=== PATIENT | female | born 1995 ===

== ENCOUNTER 2022-02-19 08:45 | Outpatient (REF) | payer OTHER, SELFPAY ==
--- NOTE | ~2022-02-19 | XR_ITS ---
EXAMINATION: XR ABDOMEN COMPLETE CLINICAL INDICATION: Abdominal distention COMPARISON: None TECHNIQUE: 2 views of the abdomen. FINDINGS: There is scattered stool seen in colon without distention. The small bowel loops are normal caliber. There is no organomegaly. No radiopaque renal calculi seen. No gross bony abnormality. XR/XR abdomen min 2V IMPRESSION: Mild constipation. No acute process seen.
[2022-02-19 09:12] LABS: MANUAL DIFF FLAG NO
[2022-02-19 09:31] LABS: Basophils Absolute Auto 0.1 X10*3/uL (0.0-0.2); Basophils Percent Auto 0.9 % (0-2); Eosinophils Absolute Auto 0.1 X10*3/uL (0.0-0.4); Eosinophils Percent Auto 1.4 % (0-4); Hematocrit 32.8 % (37.0-47.0); Hemoglobin 9.8 g/dl (12.0-16.0); Imm Gran Abs Auto 0.01 X10*3/uL (0.00-0.03); Imm Gran Pct Auto 0.2 % (0.0-0.4); Lymphocytes Absolute Auto 2.3 X10*3/uL (1.2-4.9); Lymphocytes Percent Auto 39.4 % (20-40); Mean Corpuscular HGB Conc 29.9 g/dl (31.0-35.0); Mean Corpuscular Hemoglobin 20.5 pg (27.0-33.0); Mean Corpuscular Volume 68.5 fL (80.0-98.0); Mean Platelet Volume 10.8 fL (9.4-12.3); Monocytes Absolute Auto 0.3 X10*3/uL (0.1-1.2); Monocytes Percent Auto 5.9 % (2-11); Neutrophils Percent Auto 52.2 % (45-73); Platelet Count 281 X10*3/uL (160-400); Red Blood Count 4.79 X10*6/uL (4.20-5.50); Red Cell Distribution Width 15.4 % (11.0-16.0); White Blood Count 5.8 X10*3/uL (4.8-10.8)
[2022-02-19 10:09] LABS: Appearance Urine CLEAR; Color Urine YELLOW; Glucose Urine UA NEG (NEG); Leukocyte Esterase Urine NEG (NEG); Nitrite Urine NEG (NEG); PH 5.5 (5.0-8.0); Specific Gravity - Urine >= 1.030 (1.005-1.025); Urine Blood NEG (NEG); Urine Ketones NEG (NEG); Urine Protein NEG (NEG-TRACE)
[2022-02-19 10:12] LABS: Alanine Aminotransferase 17 U/L (0-31); Albumin Level 4.3 g/dL (3.5-5.0); Alkaline Phosphatase 46 U/L (39-117); Anion Gap 11 (12-20); Aspartate Amino Transferase 21 U/L (5-31); Bilirubin Total 0.5 mg/dL (0.0-1.0); Blood Urea Nitrogen 10 mg/dL (9-16); Calcium 9.3 mg/dL (8.4-10.2); Carbon Dioxide 25 mmol/L (22-29); Chloride 107 mmol/L (96-108); Cholesterol 162 mg/dL; Estimated Glomerular Filt Rate > 60; Glucose Random 112 mg/dL (60-115); Potassium 4.4 mmol/L (3.3-5.1); Sodium 139 mmol/L (135-145); Total Protein 7.1 g/dL (6.5-8.0)
[2022-02-19 10:36] LABS: TSH reflex Free T4 1.08 uIU/mL (0.32-4.0); Vitamin D 25-OH Total 26.6 ng/mL (>30)
== END 2022-02-19 08:46 | disposition home or self-care (01) ==
LOC: HO.XRAY 08:45
PROVIDERS: PCP Internal Medicine; Visit Provider Internal Medicine
DX: Z00.00 Encounter for general adult medical examination without abnormal findings (principal); E55.9 Vitamin D deficiency, unspecified; R14.0 Abdominal distension (gaseous)
CPT/HCPCS: 36415; 74019; 80053; 81003; 82306; 82465; 84443; 85025

== ENCOUNTER 2022-02-26 10:52 | Outpatient (REF) | payer OTHER, SELFPAY ==
[2022-02-26 13:34] LABS: Folate 13.3 ng/mL (> or = 4.0); Vitamin B12 1149 pg/mL (200-900)
[2022-03-03 08:11] LABS: Transglutaminase IgA <1.0 U/mL
== END 2022-02-26 10:53 | disposition home or self-care (01) ==
LOC: HO.LAB 10:52
PROVIDERS: PCP Internal Medicine; Visit Provider Internal Medicine
DX: E53.8 Deficiency of other specified B group vitamins (principal); R14.0 Abdominal distension (gaseous)
CPT/HCPCS: 36415; 82607; 82746; 86364

== ENCOUNTER 2022-05-21 09:06 | Outpatient (REF) | payer OTHER, SELFPAY ==
--- NOTE | ~2022-05-21 | FL_ITS ---
EXAMINATION: XR GI SERIES CLINICAL INFORMATION: Abdominal distention. Gastroesophageal reflux disease. COMPARISON: None TECHNIQUE: Upper GI was performed using thin and thick barium and effervescent granules. FINDINGS: There is gastroesophageal reflux. The esophagus is otherwise normal. Esophageal motility is normal. No hernia is seen. The stomach is normal appearing. No mass, ulcer, stricture or fold thickening is seen. There is question of fold thickening and mass effect on the proximal duodenum. Follow-up abdominal CT should be considered. FLUOROSCOPY TIME: 0.7 minutes DOSE AREA PRODUCT: 6.2 uGy-m2 (microgray-meter squared) IMAGES: 22 FL/FL upper GI series IMPRESSION: Gastroesophageal reflux. Question fold thickening and mass effect on the proximal duodenum. Follow-up abdominal CT should be considered.
== END 2022-05-21 09:07 | disposition home or self-care (01) ==
LOC: HO.XRAY 09:06
PROVIDERS: PCP Internal Medicine; Visit Provider Internal Medicine
DX: R14.0 Abdominal distension (gaseous) (principal); R06.6 Hiccough
CPT/HCPCS: 74240

== ENCOUNTER 2022-07-16 10:23 | Outpatient (REF) | payer OTHER, SELFPAY ==
[2022-07-16 10:40] LABS: MANUAL DIFF FLAG NO
[2022-07-16 11:58] LABS: Basophils Absolute Auto 0.1 X10*3/uL (0.0-0.2); Basophils Percent Auto 0.8 % (0-2); Eosinophils Absolute Auto 0.1 X10*3/uL (0.0-0.4); Eosinophils Percent Auto 1.2 % (0-4); Hematocrit 38.9 % (37.0-47.0); Hemoglobin 11.4 g/dl (12.0-16.0); Imm Gran Abs Auto 0.02 X10*3/uL (0.00-0.03); Imm Gran Pct Auto 0.3 % (0.0-0.4); Lymphocytes Absolute Auto 2.1 X10*3/uL (1.2-4.9); Lymphocytes Percent Auto 28.4 % (20-40); Mean Corpuscular HGB Conc 29.3 g/dl (31.0-35.0); Mean Corpuscular Hemoglobin 21.2 pg (27.0-33.0); Mean Corpuscular Volume 72.2 fL (80.0-98.0); Mean Platelet Volume 11.9 fL (9.4-12.3); Monocytes Absolute Auto 0.5 X10*3/uL (0.1-1.2); Monocytes Percent Auto 6.4 % (2-11); Neutrophils Absolute Auto 4.6 x10*3/uL (2.0-8.3); Neutrophils Percent Auto 62.9 % (45-73); Platelet Count 254 X10*3/uL (160-400); Red Blood Count 5.39 X10*6/uL (4.20-5.50); Red Cell Distribution Width 15.8 % (11.0-16.0); White Blood Count 7.2 X10*3/uL (4.8-10.8)
[2022-07-16 12:49] LABS: Alanine Aminotransferase 21 U/L (0-31); Alkaline Phosphatase 57 U/L (39-117); Anion Gap 13 (12-20); Aspartate Amino Transferase 23 U/L (5-31); Bilirubin Total 0.4 mg/dL (0.0-1.0); Blood Urea Nitrogen 9 mg/dL (9-16); Calcium 9.7 mg/dL (8.4-10.2); Carbon Dioxide 29 mmol/L (22-29); Chloride 105 mmol/L (96-108); Estimated Glomerular Filt Rate > 60; Glucose Random 99 mg/dL (60-115); Iron 71 mcg/dL (30-160); Percent Iron Saturation 15 % (15-50); Potassium 4.4 mmol/L (3.3-5.1); Sodium 143 mmol/L (135-145); Total Iron Binding Capacity 473 mcg/dL (228-428); Total Protein 7.4 g/dL (6.5-8.0); Unsaturated Iron Binding 402 ug/dL
[2022-07-16 13:03] LABS: Albumin Level 4.3 g/dL (3.5-5.0)
== END 2022-07-16 10:24 | disposition home or self-care (01) ==
LOC: HO.LAB 10:23
PROVIDERS: PCP Internal Medicine; Visit Provider Internal Medicine
DX: D50.9 Iron deficiency anemia, unspecified (principal); R14.0 Abdominal distension (gaseous); R93.3 Abnormal findings on diagnostic imaging of other parts of digestive tract
CPT/HCPCS: 36415; 80053; 83540; 85025

== ENCOUNTER 2022-09-10 07:58 | Outpatient (REF) | payer OTHER, SELFPAY ==
--- NOTE | ~2022-09-10 | CT_ITS ---
EXAMINATION: CT ABDOMEN WITH CONTRAST CLINICAL INFORMATION: Abnormal findings on fluoroscopic studies on the proximal duodenum. COMPARISON: Upper GI fluoroscopy 05/21/2022. TECHNIQUE: Contiguous axial thin section helical images of the abdomen were performed following the administration of oral contrast and 85 mL of Omnipaque 350 intravenous contrast. The data set was reformatted in the coronal and sagittal planes and reviewed on an independent workstation. This CT examination was performed using dose optimization techniques as appropriate, variously including the following: *Automated exposure control *Adjustment of mA and/or kV according to patient size (this includes techniques or standardized protocols for targeted exams where dose is matched to indication/reason for exam; i.e. extremities or head) *Use of iterative reconstruction technique DLP: 241 mGy-cm FINDINGS: LUNG BASES: Streaky opacities in the left lung base and right middle lobe, favored to represent subsegmental atelectasis or scarring. A few sub-3 mm pleural-based nodularities, for instance in the posterior right lower lobe (6:6) and posterior left lower lobe (6:51) are of uncertain significance. No focal consolidation or pleural effusion. LIVER, GALLBLADDER, AND BILIARY TREE: The liver is normal in size, shape and attenuation. There is a 2.2 cm right hepatic lobe lesion with suggestion of peripheral nodular enhancement (3:27). There is an additional 1.5 cm low density lesion in the posteromedial right hepatic lobe (3:26) with irregular contour and also some questionable peripheral enhancement. Normal gallbladder. No biliary ductal dilatation. PANCREAS: Unremarkable SPLEEN: Normal size, no focal lesion. ADRENAL GLANDS AND KIDNEYS: No adrenal nodule or mass. Symmetric nephrograms with no evidence of hydronephrosis. No focal renal lesion. No perinephric fat stranding. BOWEL LOOPS: The included portions of the bowel are within normal limits. No evidence of bowel obstruction. No pericolonic inflammatory changes. LYMPH NODES: No abdominal lymphadenopathy. VASCULAR: Abdominal aorta is of normal diameter. Main portal vein is patent. BONES: No acute or aggressive appearing osseous abnormalities. CT/CT abdomen w IV con IMPRESSION: 1. Two hepatic lesions are indeterminate, possibly representing hemangiomas, however incompletely characterized in this examination. Recommend further characterization with an MR of the abdomen with and without intravenous contrast. 2. No discrete abnormality within the duodenal sweep, however the duodenum is partially under distended limiting its assessment. If deemed appropriate correlation with an upper endoscopy could be obtained. 3. Sub-3 mm pleural-based nodularities are of uncertain significance. In patients younger than age 35, standard Fleischner Society recommendations for incidental pulmonary nodule follow-up do not apply as nodules in this age group are most likely to be infectious/inflammatory.
[2022-09-10] MEDS: Barium Sulfate Oral (Berry) 450 ML ORAL.SUSP 900 ML PO (09:43)
[2022-09-10] MEDS: iohexoL 350 MG/ML 100 ML INFUS..BTL IV (09:44)
== END 2022-09-10 07:59 | disposition home or self-care (01) ==
LOC: HO.CT 07:58
PROVIDERS: PCP Internal Medicine; Visit Provider Internal Medicine
DX: R93.3 Abnormal findings on diagnostic imaging of other parts of digestive tract (principal)
CPT/HCPCS: 74160; Q9967

== ENCOUNTER 2022-09-28 08:23 | Outpatient (REF) | payer OTHER, SELFPAY ==
[2022-10-01 14:30] LABS: H Pylori Breath Test Negative (Negative)
== END 2022-09-28 08:24 | disposition home or self-care (01) ==
LOC: HO.LNP 08:23
PROVIDERS: Visit Provider Physician Assistant
DX: A04.8 Other specified bacterial intestinal infections (principal); R93.3 Abnormal findings on diagnostic imaging of other parts of digestive tract; R14.0 Abdominal distension (gaseous)
CPT/HCPCS: 83013

== ENCOUNTER → 2022-09-28 09:20 | Outpatient (BNVA) | payer OTHER, SELFPAY | PROVIDERS: PCP Internal Medicine; Visit Provider Physician Assistant | DX: R14.0 Abdominal distension (gaseous) (principal); R93.3 Abnormal findings on diagnostic imaging of other parts of digestive tract; A04.8 Other specified bacterial intestinal infections | CPT/HCPCS: 99202 ==

== ENCOUNTER 2023-10-24 13:12 | Outpatient (AMB) | payer OTHER, SELFPAY ==
--- NOTE | 2023-10-24 13:18 | A.OFFVIS_ITS ---
Intake Vital Signs 10/24/23 13:29 Height 5 ft 8 in Weight 213 lb 13.574 oz BMI 32.5 BP 106/63 Blood Pressure Location Lt brachial Position Sitting Pulse 81 Intake Visit Reasons: r/s from 11/09/22 Intake Note: Patient is seen in office for follow up visit, following abdominal bloating. 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 Accompanied by: Self / Same As Patient Allergies No Known Drug Allergies Allergy (Unknown, Verified 10/24/23 13:26) Unknown HPI HPI Comments History of Present Illness Details A 27 y/o female with gas and bloating she is here for [id number] says she does not feel any better despite dietary modifications -- Hpylori is negative- she does not hav e acid reflux-simethicone and pantoprazole- she d/cd- gasx some relief- not much reviewed dietary intake-Low FOD map not helpful drinks with straw- most times- Appetite is better than good No nausea, vomiting, hematemesis, hematochezia fever chills PFSH Medical History Obesity (BMI 30-39.9) Vitamin D deficiency Surgical History S/P LASIK surgery Family History Mother Arthritis Diabetes High cholesterol High blood pressure Heart problem Father High blood pressure Diabetes High cholesterol Arthritis Other Mental health problem Social History Housing: House Alcohol intake: never Patient Tobacco Use Status: Never used Tobacco Second Hand Smoke Exposure: Yes service: No Current occupational status: employed Cognitive needs: No Hearing needs: No Vision needs: No Review of Systems Const All systems reviewed & are unremarkable except as noted in HPI and below Card Denies chest pain and Denies dyspnea Resp Denies dyspnea GI Denies abdominal pain, Reports bloating, Denies hematochezia, Denies change in bowel habits, Reports dyspepsia, Denies heartburn, Denies nausea and Denies vomiting Psych Reports anxiety Physical Exam Vital Signs: Last Vital Signs Pulse 81 10/24/23 13:29 BP 106/63 10/24/23 13:29 BMI result Body Mass Index 32.5 Const General: cooperative, healthy appearing, comfortable and no acute distress Orientation/consciousness: patient oriented x3 Limitations: no limitations Resp Effort & Inspection: normal respiratory effort and able to speak in complete sentences Auscultation: clear to auscultation bilaterally, no rales, no rhonchi and no wheezes Cardio Rate: regular rate Rhythm: regular rhythm Heart sounds: S1 normal heart sound present and S2 normal heart sound present GI Palpation (GI): Soft to palpation and nontender Auscultation: normal bowel sounds Skin General skin exam: no rashes or lesions noted Neuro General: patient oriented x3 Extrem General: Yes full ROM Psych Appearance: grossly normal and well kempt Mental Status: mental status grossly normal Speech and movement: Normal speech and movement present and Clear speech present Affect: Anxious affect present Attitude: cooperative Thought content: Normal thought content present Insight: Good insight present (Psych) Judgement: Good judgement present (Psych) Results Reviewed Results Reviewed: CT/CT abdomen w IV con IMPRESSION: 1.? Two hepatic lesions are indeterminate, possibly representing hemangiomas, however incompletely characterized in this examination. Recommend further characterization with an MR of the abdomen with and without intravenous contrast. 2.? No discrete abnormality within the duodenal sweep, however the duodenum is partially under distended limiting its assessment. If deemed appropriate correlation with an upper endoscopy could be obtained. 3.? Sub-3 mm pleural-based nodularities are of uncertain significance. In patients younger than age 35, standard Fleischner Society recommendations for incidental pulmonary nodule follow-up do not apply as nodules in this age group are most likely to be infectious/inflammatory. Assessment & Plan Assessment & Plan (1) Abdominal bloating: Comment: Very pleasant 28-year-old female abdominal bloating and despite dietary modification Continue Simethicone avoid culprits Code(s): R14.0 - Abdominal distension (gaseous) Plan will retry [employer] Medications: New simethicone (Gas Relief (simethicone)) 125 mg PO TID-QID PRN 90 tabs 2RF abdominal distention Patient Instructions: EGD- to be scheduled-reviewed procedure need for escort gas x fod map Encouraged to call questions or concerns Coding Level of Care Code Est Pt Level 3 (54180) Diagnoses Abdominal bloating R14.0 Time Spent (min) 25
[2023-10-24 13:29] VITALS: BP 106/63; PULSE 81; BMI 32.5
== END 2023-10-24 14:31 | disposition home or self-care (01) ==
PROVIDERS: PCP Internal Medicine; Visit Provider Physician Assistant
DX: R14.0 Abdominal distension (gaseous) (principal)
CPT/HCPCS: 99213

== ENCOUNTER → 2023-10-24 13:12 | Outpatient (BNVA) | payer OTHER, SELFPAY | PROVIDERS: PCP Internal Medicine; Visit Provider Physician Assistant | DX: R14.0 Abdominal distension (gaseous) (principal) | CPT/HCPCS: 99212 ==

== ENCOUNTER 2023-11-09 12:30 | Outpatient (AMB) | payer OTHER, SELFPAY ==
[2023-11-09 12:34] VITALS: BP 118/78; PULSE 66; O2SAT 99; BMI 32.5
--- NOTE | 2023-11-09 12:34 | A.OFFPC_ITS ---
Vital Signs 11/09/23 12:34 Height 5 ft 8 in Weight 214 lb BMI 32.5 BP 118/78 Blood Pressure Location Lt brachial Position Sitting Pulse 66 Pulse Source Pulse Oximeter Pulse Oximetry (%) 99 Oxygen Delivery Method Room Air Intake Visit Reasons: PE/ Discuss weight loss [employer] Lieutenant Required: No Accompanied by: Self / Same As Patient Allergies No Known Drug Allergies Allergy (Unknown, Verified 11/09/23 13:37) Unknown Medication List - Last Reconciled 11/09/23 by Jesús Simon MD magnesium 250 mg PO DAILY PRN multivitamin with minerals (Hair,Skin and Nails tablet) 1 tab PO DAILY simethicone (Gas Relief (simethicone)) 125 mg PO TID-QID PRN Tobacco use date assessed: 11/09/23 Dental Screening Dental Screen Date: 11/09/23 Did you have a dental visit in the last 12 months?: Yes Did you have a dental problem in the last 6 months where you did not have access to dental care?: No Was dental information given to patient?: Patient has dentist HPI PE/ Discuss weight loss HPI Details Patient comes in today for her annual physical examination States that she feels okay She denies any headaches or dizziness Denies any chest pains, no SOB No nausea/vomiting, no abdominal pain but states that she still has to take her Simethicone every now and then due to increased abdominal gas occasionally No change in bowel habits noted She denies any acute urinary symptoms States that she has not seen gynecology in about 7 to 8 years now Is supposedly scheduled for EGD sometime next month but have advised her that this may have been rescheduled to December 2023 based on what I am seeing in her chart and have recommended that she check with GI regarding this to confirm She had her abdominal CT done last year to confirm the abnormal findings on her previous upper GI series and would like to go over the details of her results Adds that she has been struggling with her weight and has not had much success even though she tries to work out at least a couple of times a week and watches her diet regularly - is concerned that this may affect her health long-term as she's had problems with being a borderline diabetic in the past [facility] Medical History Vitamin D deficiency Obesity (BMI 30-39.9) Surgical History S/P LASIK surgery Family History Mother Arthritis Diabetes High cholesterol High blood pressure Heart problem Father High blood pressure Diabetes High cholesterol Arthritis Other Mental health problem Social History Housing: House Alcohol intake: never Patient Tobacco Use Status: Never used Tobacco Second Hand Smoke Exposure: Yes service: No Current occupational status: employed Cognitive needs: No Hearing needs: No Vision needs: No Questionnaire PHQ-9 Over the last 2 weeks, how often have you been bothered by any of the following problems? 1. Little interest or pleasure in doing things: not at all 2. Feeling down, depressed, or hopeless: not at all 3. Trouble falling or staying asleep, or sleeping too much: not at all 4. Feeling tired or having little energy: not at all 5. Poor appetite or overeating: not at all 6. Feeling bad about yourself - or that you are a failure or have let yourself or your family down: not at all 7. Trouble concentrating on things, such as reading the newspaper or watching television: not at all 8. Moving or speaking so slowly that other people could have noticed. Or the opposite - being so fidgety or restless that you have been moving around a lot more than usual: not at all 9. Thoughts that you would be better off or of hurting yourself in some way: not at all Total score: 0 Depression Screening Interpretation: Negative Depression Screening Done: Yes 45363 - PHQ-9 Billing: Yes Source: Developed by Drs. Bo Esparza, Samira Kincaid, Curtis Mendosa and colleagues, with an educational joaquin from [employer]. Thrive Questionnaire Date Thrive assessed: 11/09/23 I am a: Patient What is your living situation today?: I have a steady place to live Within the past 12 months, did the food you bought not last and you didn't have the money to get more?: Never true Within the past 12 months, did you worry whether your food would run out before you got money to buy more?: Never true Do you have trouble paying for medicines?: No Do you have trouble getting transportation to medical appointments?: No Do you have trouble paying your heating and electricity bill?: No Do you have trouble taking care of your child, family member or friend?: No Do you have trouble with day-to-day activities such as bathing, preparing meals, shopping, managing finances, etc.?: No Are you currently unemployed and looking for a job?: No Are you interested in more education?: No Please select the resources that you would like help with: None Currently or been in a relationship where the following occur: no concerns reported THRIVE Score: 0 AUDIT C Alcohol Use Questionnaire (AUDIT-C) 1. How often do you have a drink containing alcohol?: Never 3. How often do you have six or more drinks on one occasion?: Never Total Score: 0 Score Reviewed/Action Taken: Yes SRUTHI-7 AMB Questionnaire SRUTHI-7 Date SRUTHI - 7 assessed: 11/09/23 Feeling nervous, anxious, or on edge: 0 = Not at all Not being able to stop or control worryin = Not at all Worrying too much about different things: 0 = Not at all Trouble relaxin = Not at all Being so restless that it is hard to sit still: 0 = Not at all Becoming easily annoyed or irritable: 0 = Not at all Feeling afraid as if something awful might happen: 0 = Not at all Total SRUTHI-7 score (0-4 normal; 5-9 mild; 10-14 moderate; 15-21 severe): 0 Source: Developed by Drs. Bo Esparza, Samira Kincaid, Curtis Mendosa and colleagues, with an educational joaquin from [employer]. Review of Systems Const Denies chills, Denies fatigue, Denies fever(s), Denies headache(s) and Denies malaise Eyes Denies blurry vision, Denies change in vision, Denies irritation and Denies itchy eyes ENT Denies dysphagia, Denies dizziness, Denies otalgia, Denies headache(s), Denies neck pain, Denies odynophagia, Denies sinus pain and Denies sore throat Card Denies chest pain, Denies rapid heart rate, Denies irregular heart rhythm, Denies palpitations and Denies dyspnea Resp Denies chest congestion, Denies cough, Denies dyspnea and Denies wheezing GI Denies abdominal pain, Reports belching (stomach feels gassy often), Denies bloating, Denies constipation, Denies dysphagia, Denies heartburn, Denies diarrhea, Denies nausea, Denies odynophagia and Denies vomiting Denies hematuria, Denies urinary frequency, Denies dysuria, Denies urinary incontinence and Denies urinary urgency Musc Denies back pain, Denies arthralgias, Denies joint swelling, Denies muscle weakness and Denies neck pain Skin/Breast Denies breast pain, Denies breast mass, Denies change in pigmentation, Denies lesions, Denies rash and Denies unusual bruising Neuro Denies dizziness, Denies headache(s) and Denies paresthesias Psych Denies anxiety and Denies depression Endo Denies fatigue and Denies palpitations Praveen/Lymph Denies easy bruising Aller/Immun Denies itchy eyes and Denies wheezing Physical exam (Primary Care) Vital Signs: Last Vital Signs Pulse 66 11/09/23 12:34 BP 118/78 11/09/23 12:34 Pulse Ox 99 11/09/23 12:34 Oxygen Delivery Method Room Air 11/09/23 12:34 BMI result Body Mass Index 32.5 Tobacco/Smoking Status: Tobacco use Status Tobacco use date assessed 11/09/23 11/09/23 12:40 Patient Tobacco Use Status Never used Tobacco 11/09/23 12:40 PHQ-9: PHQ-9 Score PHQ-9: Total score 0 11/09/23 12:40 Depression Screening Interpretation: Negative Thrive Assessment: Date of Thrive Assessment Date Thrive assessed 11/09/23 11/09/23 12:40 Currently or been in a relationship where the following occur: no concerns rep orted Const General: no acute distress, alert and awake Orientation/consciousness: patient oriented x3 HENMT Head: Yes normocephalic and Yes atraumatic Ears: external ears normal, TM's normal bilaterally and EAC's normal General nose exam: No nasal discharge present Face and sinus: Yes normal facial exam and Yes sinuses nontender Teeth and gingiva: dentition normal Throat: Yes posterior oropharynx normal and Yes tonsils normal (no TP congestion) Eyes Eyelids: Yes eyelids normal Conjunctivae: conjunctivae normal Pupils: Equal, round and reactive pupils present EOM: EOMs intact bilaterally Neck Neck: Yes no lymphadenopathy and Yes supple Thyroid: Thyroid normal Resp Auscultation: clear to auscultation bilaterally, no rales and no wheezes Cardio Rate: regular rate Rhythm: regular rhythm Heart sounds: no murmurs GI Palpation (GI): Soft to palpation, nontender and No hepatosplenomegaly present Auscultation: normal bowel sounds General: Yes no CVA tenderness Back/Spine/Pelvis Back: no CVA tenderness Thoracic/Lumbar Spine: thoracic and lumbar spine normal to inspection Skin Lesions: no lesions Rashes: no rashes Neuro General: patient oriented x3, moves all extremities, no focal motor deficits and CN's II-XI intact bilaterally Cranial nerves: Yes Equal, round and reactive pupils present Cognition (Neuro): normal cognition Gait exam (Neuro): Normal gait present Extrem General: Yes no clubbing, cyanosis or edema Assessment and Plan Assessment & Plan (1) Annual physical exam: Code(s): Z00.00 - Encounter for general adult medical examination without abnormal findings Plan: Check labs She has not seen gynecology in about 7 to 8 years now and is overdue for her annual pap smear and gynecology exam (2) Lesion of right lobe of liver: Code(s): K76.9 - Liver disease, unspecified Plan: Results of her abdominal CT done last August 2022 reviewed and discussed with patient Will send her for MRI of the abdomen to further evaluation the 2 right liver lesions seen on CT - suspect hemangiomas (3) Abdominal bloating: Comment: Very pleasant 28-year-old female abdominal bloating and despite dietary modification Continue Simethicone avoid culprits Code(s): R14.0 - Abdominal distension (gaseous) Plan: Reinforced dietary restrictions Abdominal x-rays done in 2021 came out mostly normal except for findings suggestive of mild constipation Upper GI series a few months later revealed (+) gastroesophageal reflux, with a questionable fold thickening and mass effect on the proximal duodenum Abdominal CT done in August 2022 revealed (+) two hepatic lesions that are indeterminate, possibly representing hemangiomas, however incompletely characterized in this examination and recommend further characterization with an MR of the abdomen with and without intravenous contrast. There were no discrete abnormality within the duodenal sweep, however the duodenum is partially under distended limiting its assessment and an upper endoscopy should be considered She was supposedly scheduled for EGD next month but it looks like this was rescheduled and patient is advised to check with [facility] regarding this She w as tried on Omeprazole 40 mg QD but did not feel that this helped so she stopped taking it a while ago (4) Anemia: Code(s): D64.9 - Anemia, unspecified Qualifiers: Anemia type: iron deficiency Iron deficiency anemia type: inadequate dietary iron intake Qualified Code(s): D50.8 - Other iron deficiency anemias Plan: Her last H/H was at 11.4/38.9 in June 2022 She was started previously on oral iron supplements (Ferrous Sulfate 325 mg QD) but she has not taken this in months now Will recheck her CBC for follow up (5) High serum vitamin B12: Code(s): R79.89 - Other specified abnormal findings of blood chemistry Plan: Patient had a very high B12 level of >1000 pg/ml when it was last checked in 2021 States that she is not really taking any B12 supplements Will recheck this and if this is still elevated, may need further work up (6) Vitamin D deficiency: Code(s): E55.9 - Vitamin D deficiency, unspecified Plan: Will recheck her Vitamin D level for follow up (7) Obesity (BMI 30-39.9): Code(s): E66.9 - Obesity, unspecified Plan: Reinforced diet/exercise as tolerated/lose weight - advised that I would not recommend any weight loss Rx until all of her GI issues are resolved and addressed Plan Follow up in 6 months Orders: Orders Complete Blood Count Auto Diff Today D64.9 - Anemia, unspecified, Z00.00 - Encounter for general adult medical examination without abnormal findings Comprehensive [place]. Panel Fast Today E78.00 - Pure hypercholesterolemia, unspecified, Z00.00 - Encounter for general adult medical examination without abnormal findings TSH reflex Free T4 Today E78.00 - Pure hypercholesterolemia, unspecified, Z00.00 - Encounter for general adult medical examination without abnormal findings Vitamin D 25-OH Total Today E55.9 - Vitamin D deficiency, unspecified, Z00.00 - Encounter for general adult medical examination without abnormal findings Vitamin B12 and Folate Today E53.8 - Deficiency of other specified B group vitamins, Z00.00 - Encounter for general adult medical examination without abnormal findings Hemoglobin A1c Today E11.9 - Type 2 diabetes mellitus without complications, Z0 0.00 - Encounter for general adult medical examination without abnormal findings MR abdomen wo/w con Today K76.9 - Liver disease, unspecified Lipid Panel Today E78.00 - Pure hypercholesterolemia, unspecified, Z00.00 - Encounter for general adult medical examination without abnormal findings UA CC w/rflx Micro + Cult Today R30.0 - Dysuria, Z00.00 - Encounter for general adult medical examination without abnormal findings Referrals [facility] [employer] Referral Z12.4 - Encounter for screening for malignant neoplasm of cervix Coding Level of Care Code Est Pt Prev Care [id number]([id number]) Diagnoses Annual physical exam Z00.00 Lesion of right lobe of liver K76.9 Abdominal bloating R14.0 Iron deficiency anemia secondary to inadequate dietary iron intake D50.8 Anemia type: iron deficiency Iron deficiency anemia type: inadequate dietary iron intake High serum vitamin B12 R79.89 Vitamin D deficiency E55.9 Obesity (BMI 30-39.9) E66.9
== END 2023-11-09 13:38 | disposition home or self-care (01) ==
PROVIDERS: PCP Internal Medicine; Visit Provider Internal Medicine
DX: Z00.00 Encounter for general adult medical examination without abnormal findings (principal); K76.9 Liver disease, unspecified; R14.0 Abdominal distension (gaseous); D50.8 Other iron deficiency anemias; R79.89 Other specified abnormal findings of blood chemistry; E55.9 Vitamin D deficiency, unspecified
CPT/HCPCS: 99395

== ENCOUNTER 2023-11-09 13:41 | Outpatient (REF) | payer OTHER, SELFPAY ==
[2023-11-09 13:53] LABS: MANUAL DIFF FLAG NO
[2023-11-09 14:05] LABS: Basophils Absolute Auto 0.1 X10*3/uL (0.0-0.2); Basophils Percent Auto 0.8 % (0-2); Eosinophils Absolute Auto 0.1 X10*3/uL (0.0-0.4); Eosinophils Percent Auto 1.2 % (0-4); Hematocrit 37.4 % (37.0-47.0); Hemoglobin 11.2 g/dl (12.0-16.0); Imm Gran Abs Auto 0.03 X10*3/uL (0.00-0.03); Imm Gran Pct Auto 0.4 % (0.0-0.4); Lymphocytes Absolute Auto 2.4 X10*3/uL (1.2-4.9); Lymphocytes Percent Auto 30.8 % (20-40); Mean Corpuscular HGB Conc 29.9 g/dl (31.0-35.0); Mean Corpuscular Hemoglobin 21.4 pg (27.0-33.0); Mean Corpuscular Volume 71.5 fL (80.0-98.0); Monocytes Absolute Auto 0.5 X10*3/uL (0.1-1.2); Monocytes Percent Auto 5.9 % (2-11); Neutrophils Absolute Auto 4.7 x10*3/uL (2.0-8.3); Neutrophils Percent Auto 60.9 % (45-73); Platelet Count 271 X10*3/uL (160-400); Red Blood Count 5.23 X10*6/uL (4.20-5.50); Red Cell Distribution Width 15.2 % (11.0-16.0); White Blood Count 7.8 X10*3/uL (4.8-10.8)
[2023-11-09 14:37] LABS: Alanine Aminotransferase 15 U/L (0-31); Albumin Level 4.2 g/dL (3.5-5.0); Alkaline Phosphatase 44 U/L (39-117); Anion Gap 8 (12-20); Aspartate Amino Transferase 18 U/L (5-31); Bilirubin Total 0.2 mg/dL (0.0-1.0); Blood Urea Nitrogen 12 mg/dL (9-16); Calcium 9.1 mg/dL (8.4-10.2); Carbon Dioxide 28 mmol/L (22-29); Chloride 107 mmol/L (96-108); Cholesterol 180 mg/dL (<200); Estimated Glomerular Filt Rate > 60; Glucose Fasting 102 mg/dL (60-99); HDL Cholesterol 45 mg/dL (>40); LDL Cholesterol Calculated 115 mg/dL (<100); Potassium 4.2 mmol/L (3.3-5.1); Sodium 139 mmol/L (135-145); Total Protein 7.5 g/dL (6.5-8.0); Triglycerides 101 mg/dL (<150)
[2023-11-09 14:53] LABS: TSH reflex Free T4 0.57 uIU/mL (0.32-4.0); Vitamin D 25-OH Total 22.2 ng/mL (>30)
[2023-11-09 15:16] LABS: Folate 6.2 ng/mL (> or = 4.0); Vitamin B12 706 pg/mL (200-900)
[2023-11-09 15:21] LABS: Estimated Average Glucose 111 mg/dL; Hemoglobin A1c % 5.5 % (<6.0)
== END 2023-11-09 13:42 | disposition home or self-care (01) ==
LOC: HO.LAB 13:41
PROVIDERS: PCP Internal Medicine; Visit Provider Internal Medicine
DX: Z00.00 Encounter for general adult medical examination without abnormal findings (principal); E78.00 Pure hypercholesterolemia, unspecified; D64.9 Anemia, unspecified; E55.9 Vitamin D deficiency, unspecified; E53.8 Deficiency of other specified B group vitamins; E11.9 Type 2 diabetes mellitus without complications
CPT/HCPCS: 36415; 80053; 80061; 82306; 82607; 82746; 83036; 84443; 85025

== ENCOUNTER 2023-11-17 12:50 | Day surgery (SDC) | payer OTHER, SELFPAY ==
--- NOTE | 2023-11-16 09:31 | HO.ANESPROP2 ---
Documented by User: Rizwana Centeno NP 11/16/23 09:33 HPI - Anesthesia Eval Consult details Narrative: 28yo F for Upper Endoscopy PMFSH Active Problems Active Problems: All Active Problems (Updated 11/09/23 @ 14:30 by Jesús Simon MD) High serum vitamin B12 (Acute) Lesion of right lobe of liver (Acute) Helicobacter pylori (H. pylori) (Acute) Abnormal upper gastrointestinal barium series (Acute) Vitamin D deficiency (Acute) Anemia (Acute) Obesity (BMI 30-39.9) (Acute) Seborrhea capitis in adult (Acute) Annual physical exam (Acute) Singultus (Acute) Abdominal bloating (Acute) Past Medical History Medical History Vitamin D deficiency Obesity (BMI 30-39.9) Family History Family History Mother Arthritis Diabetes High cholesterol High blood pressure Heart problem Father High blood pressure Diabetes High cholesterol Arthritis Other Mental health problem Surgical History Surgical History S/P LASIK surgery Social History Social History Housing: House Alcohol intake: never Patient Tobacco Use Status: Never used Tobacco Second Hand Smoke Exposure: Yes Use of substances other than those prescribed or required for medical reasons: No Advance Directives: No Advance Directives Information Provided: Yes service: No Current occupational status: employed Cognitive needs: No Hearing needs: No Vision needs: No Meds Allergies Allergy/AdvReac Type Severity Reaction Status Date / Time No Known Drug Allergies Allergy Unknown Unknown Verified 11/09/23 13:37 Home Medications Medication Instructions Recorded Confirmed Last Taken Type magnesium 250 mg tablet 250 mg PO DAILY PRN stool softener 11/09/23 11/17/23 Unknown History multivitamin with minerals 1 tab PO DAILY 11/09/23 11/17/23 Unknown History (Hair,Skin and Nails tablet) Exam Pertinent Lab Results Pertinent Lab Results: Laboratory Tests 11/09/23 13:51 WBC 7.8 Hgb 11.2 L Hct 37.4 Plt Count 271 Sodium 139 Potassium 4.2 Chloride 107 Carbon Dioxide 28 BUN 12 Creatinine 0.70 Assessment and Plan Assessment Anesthesia Assessment: Chart Reviewed Documented by User: Sena Talavera MD 11/17/23 13:41 PMFSH Active Problems Active Problems: All Active Problems (Updated 11/17/23 @ 13:24 by Sena Talavera MD) High serum vitamin B12 (Acute) Lesion of right lobe of liver (Acute) Helicobacter pylori (H. pylori) (Acute) Abnormal upper gastrointestinal barium series (Acute) Vitamin D deficiency (Acute) Anemia (Acute) Obesity (BMI 30-39.9) (Acute) Seborrhea capitis in adult (Acute) Annual physical exam (Acute) Singultus (Hiccups) Abdominal bloating (Acute) Past Medical History Medical History Vitamin D deficiency Obesity (BMI 30-39.9) Family History Family History Mother Arthritis Diabetes High cholesterol High blood pressure Heart problem Father High blood pressure Diabetes High cholesterol Arthritis Other Mental health problem Family history of problems with anesthesia: No Surgical History Surgical History S/P LASIK surgery History of Problems with Anesthesia: No Social History Social History Housing: House Alcohol intake: never Patient Tobacco Use Status: Never used Tobacco Second Hand Smoke Exposure: Yes Use of substances other than those prescribed or required for medical reasons: No Advance Directives: No Advance Directives Information Provided: Yes service: No Current occupational status: employed Cognitive needs: No Hearing needs: No Vision needs: No Meds Allergies Allergy/AdvReac Type Severity Reaction Status Date / Time No Known Drug Allergies Allergy Unknown Unknown Verified 11/09/23 13:37 Home Medications Medication Instructions Recorded Confirmed Last Taken Type magnesium 250 mg tablet 250 mg PO DAILY PRN stool softener 11/09/23 11/17/23 Unknown History multivitamin with minerals 1 tab PO DAILY 11/09/23 11/17/23 Unknown History (Hair,Skin and Nails tablet) Exam Height,Weight and Vital Signs: Height 5 ft 8 in Weight 97.976 kg Vital Signs Temp Pulse Resp BP Pulse Ox O2 Del Method 11/17/23 13:33 98.3 F 75 18 110/68 98 Room Air Pertinent Lab Results Pertinent Lab Results: Laboratory Tests 11/09/23 13:51 WBC 7.8 Hgb 11.2 L Hct 37.4 Plt Count 271 Sodium 139 Potassium 4.2 Chloride 107 Carbon Dioxide 28 BUN 12 Creatinine 0.70 Lab Results 11/17/23 Range/Units 13:00 Urine Test NEGATIVE (NEGATIVE) Airway Mallampati Class: II TM Dist: >3cm Neck ROM: Full Loose/Missing/Broken Teeth: No (Denies broken, loose, missing teeth) Heart: RRR Lungs: CTAB Assessment and Plan Assessment Anesthesia Assessment: Anesthesia Plan Discussed and Chart Reviewed Final Anesthetic Review Family History of Problems with Anesthesia: No History of Problems with Anesthesia: No NPO: Yes ASA Class: II Final Preanesthetic Review: No Changes in Pt Med Stat, Meds/Allgs Chart Reviewed, Consent Obtained/Reviewed and Anes Risks/Benef Reviewed Patient Risk: Low Procedure Risk: Low Assessment/Block/Sedation in SS: Assess/Block/Sedation-SS Anesthetic Plan Anesthetic Plan: MAC: and TIVA Disposition: Standard PACU
[2023-11-17 13:12] VITALS: BMI 32.8
[2023-11-17 13:29] LABS: UPreg QC Valid YES; Urine Pregnancy NEGATIVE (NEGATIVE)
[2023-11-17 13:33] VITALS: BP 110/68; PULSE 75; RESP 18; TEMP 36.8; O2SAT 98
--- NOTE | 2023-11-17 13:48 | MHC.SHP ---
Pre-Procedural Eval Section A - 24 Hr Update-Section A only Date of Service: 11/17/23 Section B - Complete if H&P > 30 days Chief Complaint: Abdominal distension (gaseous) Relevant Family History (Specify if Yes): No Relevant Social History: None Present Medications: see Short Stay Collaborative assessment Medical History: Significant History (obesity) History of Previous Operations: Relevant previous surgery/procedure and date(s) (lasik) Allergies: Allergies Allergy/AdvReac Type Severity Reaction Status Date / Time No Known Drug Allergies Allergy Unknown Unknown Verified 11/09/23 13:37 Review of Systems Sugical H&P ROS: Negative: Constitution, Cardiovascular, Respiratory, Neurological, Psychiatric, Hem-Onc, Allergic/Immunologic, Gastrointestinal, Genitourinary, Musculoskeletal, Integumentary, Endocrine and Eyes/Ears/Nose/Throat Exam Surgical H&P Exam: Normal: HEENT, Normal: Heart, Normal: Lungs, Normal: Extremities, Normal: Abdomen, Normal: Skin and Normal: Neurological Plan Diagnosis/Plan: Unchanged I have reviewed the history and physical and performed a pertinent physical examination on my patient. No changes have occurred unless specified. Time Spent With Patient Time: Total time managing care of this patient today ____ minutes.
[2023-11-17] MEDS: Lactated Ringers 1,000 ML 100 ML IVCONT (13:57)
--- NOTE | 2023-11-17 14:11 | W.PM.OPN ---
Operative Note Operative Note Date of Service: 11/17/23 Narrative: Procedure Description: EGD Indication: bloating Anesthesia: MAC FLEXIBLE TRANSORAL UPPER GASTROINTESTINAL ENDOSCOPY UPPER ENDOSCOPY Consent: Indications for the procedure and potential complications of bleeding, perforation, reaction to medications and missed diagnosis were discussed with the patient and informed consent was obtained. Instrument: Olympus GIF H 190 J mid size upper endoscope Monitoring: Vital signs and clinical assessment, continuous EKG monitoring, Pulse oximetry, Carbon Dioxide monitoring and blood pressure monitoring were done throughout the procedure. Procedure: The patient was placed in the left lateral decubitis position and pre-procedure medications were administered and a bite block was placed. The endoscope was inserted into the mouth and advanced under direct vision to the third part of duodenum. A careful inspection was made as the upper endoscope was withdrawn including a retroflexed examination of the proximal stomach; Findings and interventions are described below. Findings: Larynx:normal Esophagus: GE junction at 38 cm, diaphragm hiatus at 38 cm, mild esophagitis at GEJ, bx taken as well as from distal esophagus Stomach: normal mucosa and good peristalsis . Biopsies were obtained. Grade 2 flap valve on retroflexed examination of the cardia. Duodenum: Normal bulb and descending duodenum, bx taken incl disaccharidases Intervention: Biopsies as noted above, Impression/Findings: esophagitis PLAN: GERD precautions consider trial of rifaximin and probiotics
[2023-11-17 14:19] VITALS: BP 98/55; PULSE 63; RESP 16; TEMP 36.3; O2SAT 98
[2023-11-17 14:34] VITALS: BP 112/66; PULSE 60; RESP 20; TEMP 36.1; O2SAT 99
[2023-11-23 20:49] LABS: Lactase 2.3 (15.0-45.5); Maltase 89.7 (100.0-224.4); Palatinase 7.6 (5.0-26.3); Sucrase 27.3 (25.0-69.9)
== END 2023-11-17 15:00 | disposition home or self-care (01) ==
PROVIDERS: Nurse Practitioner; PCP Internal Medicine; Visit Provider Internal Medicine Gastroenterology
PROC: 0DJ08ZZ Inspection of Upper Intestinal Tract, Via Natural or Artificial Opening Endoscopic (ICD-10-PCS; CPT 43235; principal; 2023-11-17 14:00)
DX: R14.0 Abdominal distension (gaseous) (principal); K20.80 Other esophagitis without bleeding; K44.9 Diaphragmatic hernia without obstruction or gangrene; E55.9 Vitamin D deficiency, unspecified; E66.9 Obesity, unspecified; Z68.32 Body mass index [BMI] 32.0-32.9, adult; Z79.899 Other long term (current) drug therapy
CPT/HCPCS: 43239; 36415; 81025; 82657; 88305; 88313; 88342; J2250; J2704

== ENCOUNTER → 2023-11-17 12:50 | Outpatient (BNV) | payer OTHER, SELFPAY | PROVIDERS: PCP Internal Medicine; Visit Provider Internal Medicine Gastroenterology | DX: R14.0 Abdominal distension (gaseous) (principal); K20.90 Esophagitis, unspecified without bleeding; K29.70 Gastritis, unspecified, without bleeding | CPT/HCPCS: 43239 ==

== ENCOUNTER 2023-12-05 11:35 | Outpatient (AMB) | payer OTHER, SELFPAY ==
--- NOTE | 2023-12-05 11:36 | MHC.OFFVIS ---
Intake Intake Visit Reasons: s/p egd Intake Note: Patient follow up for EGD results. Patient cc: abdominal discomfort with bloating. Denies any other GI issues. Washcoat Wiper Required: No Allergies No Known Drug Allergies Allergy (Unknown, Verified 11/09/23 13:37) Unknown HPI HPI Comments History of Present Illness Details A 28-year-old female with acid reflux /bloating, follows up after recent EGD with biopsy- Dr. Velázquez She tolerated procedure well Reviewed procedure report, pathology recommendation -needs to be careful with dairy also pancakes, sweet potatoes, andorran bread, fried onion rings, bagels, pizza, hamburgers, edamame,?whihc can be high in maltase Reviewed labs Declined-rifaximin/probiotic No other concerns PFSH Medical History (Updated 12/05/23 @ 12:15 by Ailyn Lazcano PA-C) Obesity Vitamin D deficiency Obesity (BMI 30-39.9) Surgical History History of esophagogastroduodenoscopy (EGD) S/P LASIK surgery Family History Mother Arthritis Diabetes High cholesterol High blood pressure Heart problem Father High blood pressure Diabetes High cholesterol Arthritis Other Mental health problem Social History Housing: House Alcohol intake: never Patient Tobacco Use Status: Never used Tobacco Second Hand Smoke Exposure: Yes service: No Current occupational status: employed Cognitive needs: No Hearing needs: No Vision needs: No Review of Systems Const All systems reviewed & are unremarkable except as noted in HPI and below Results Reviewed Results Reviewed: Impression/Findings: esophagitis PLAN: GERD precautions consider trial of rifaximin and probiotics Age/Sex: 28/F Attending: Jarad Velázquez MD : 1995 Submitted by: Jarad Velázquez MD Copies to: Jesús Simon MD MR #: [id number] Status: [facility] Collected: 11/17/23 Location: [facility] Received: 11/17/23 THIS IS A CORRECTED REPORT This is a corrected report. Any previous versions are stored internally and are available if necessary. Diagnosis A. Duodenum, biopsy: Duodenal mucosa with preserved villi and no specific change. B. Stomach, biopsy: Gastric body mucosa with minimal chronic inactive gastritis; negative for H pylori, intestinal metaplasia and dysplasia. C. Esophagogastric junction, biopsy: Squamocolumnar mucosa with mild chronic inflammation; negative for intestinal metaplasia and dysplasia. D. Esophagus, distal, biopsy: Squamous mucosa with no specific change; no columnar mucosa present. Note: Report corrected to correct typographical error in part B diagnosis; diagnoses are unchanged. Clinical History Pre-Op Dx: Abdominal bloating Post-Op Dx: Mild gastritis Microscopic Description Microscopic sections reviewed. Immunostain for H. pylori on B is negative. AB/PAS on A shows no evidence of chronic injury. AB/PAS on B and C are negative for intestinal metaplasia. Controls stain appropriately. Material Received A. Duodenal bx B. Stomach bx C. EG junction bx D. Distal esophagus bx Gross Description Patient: Eduard Puente Age/Sex: 28/F MR#: [id number] Page 1 of 2 Assessment & Plan Assessment & Plan (1) Adult lactase deficiency: Code(s): E73.9 - Lactose intolerance, unspecified Plan: declines rifaximin (2) Obesity: Comment: Discussed with patient requests weight management referral Code(s): E66.9 - Obesity, unspecified Plan: Referral placed Plan Nutrition referral Orders: Referrals [employer] [facility] Nutrition Referral E66.9 - Obesity, unspecified, E73.9 - Lactose intolerance, unspecified Patient Instructions: Reviewed procedure report, pathology recommendation Reviewed recommendations needs to be careful with dairy also pancakes, sweet potatoes, andorran bread, fried onion rings, bagels, pizza, hamburgers, edamame,?which can be high in maltase Telehealth Telehealth Location of provider rendering services: practice address Location of patient: address on file Patient Identification confirmed using: Name, : Yes Telehealth method: voice only Patient verbally consented to treatment: Yes Patient verbally consented to billing insurance company: Yes Patient informed of any privacy concerns related to visit: Yes Minutes spent on Phone/Video with Pt.: 15 Coding Level of Care Code Tele Est Pt Level 3 (81055) Diagnoses Adult lactase deficiency E73.9 Obesity E66.9 Time Spent (min) 15
== END 2023-12-05 14:28 | disposition home or self-care (01) ==
LOC: HO.HGI 11:35
PROVIDERS: PCP Internal Medicine; Visit Provider Physician Assistant
DX: E73.9 Lactose intolerance, unspecified (principal); E66.9 Obesity, unspecified
CPT/HCPCS: 99213

== ENCOUNTER → 2023-12-05 11:35 | Outpatient (BNVA) | payer OTHER, SELFPAY | PROVIDERS: PCP Internal Medicine; Visit Provider Physician Assistant ==

== ENCOUNTER 2024-01-27 11:40 | Outpatient (AMB) | payer OTHER, SELFPAY ==
[2024-01-27 11:44] VITALS: BP 100/62; BMI 30.6
--- NOTE | 2024-01-27 11:44 | A.OFFVIS_ITS ---
Vital Signs 01/27/24 11:44 Height 5 ft 8 in Weight 201 lb BMI 30.6 BP 100/62 Intake Visit Reasons: New Patient Annual Intake Note: Has always had irregular period for a long time and would like to check hormone letters. Dielectric Tester Required: No Information Interpreted: non-clinical & clinical Table Games Floor Supervisor: Table Games Floor Supervisor Present (Aidyn) Allergies No Known Drug Allergies Allergy (Unknown, Verified 01/27/24 11:46) Unknown Medication List - Last Reconciled 01/27/24 by Esperanza Sheikh CNM multivitamin with minerals (Hair,Skin and Nails tablet) 1 tab PO DAILY simethicone (Gas Relief (simethicone)) 125 mg PO TID-QID PRN Is last menstrual period known: Yes Last menstrual period: 12/15/23 Post menopausal: No HPI HPI New Patient Annual: Details: Patient is here for new slitter service and setter exam. She had 1 dormitory keeper visit when she was a teenager that she thinks her father drove her to she was going to [facility] for pediatric care at the time and she was having very irregular periods she has always had and she was given control pills they helped regulate her periods but then she had a lot of acne so she stopped pills she thought they were causing. She also does not like to take medications she does not need to take. She has never had sex with anyone she is virginal she is very concerned and we did discuss recommendations for cervical cancer screening at this visit but she declines as she wishes not to have a pelvic exam at this time and may decline until after marriage. Prevention of HPV related diseases was discussed and I recommend she ensure that she gets vaccinated which she thinks she did not get as a teenager. She has irregular periods and has had some all her life when she was younger she lost a lot a weight by dropping to 400 calories a day and she also lost a lot of hair at the time it is starting to come but she does have some meal pattern hair loss and she does have hirsutism that she deals with by getting laser treatments. She is interested in seeing tire builder heavy service as well. She gets periods very irregularly the last 2 were 6 weeks apart but they can be more irregular than the and they have always been that way. 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 [facility] Medical History Obesity Vitamin D deficiency Obesity (BMI 30-39.9) Surgical History History of esophagogastroduodenoscopy (EGD) S/P LASIK surgery Family History Mother Arthritis Diabetes High cholesterol High blood pressure Heart problem Father High blood pressure Diabetes High cholesterol Arthritis Other Mental health problem Social History Housing: House Alcohol intake: never Patient Tobacco Use Status: Never used Tobacco Second Hand Smoke Exposure: Yes service: No Current occupational status: employed Cognitive needs: No Hearing needs: No Vision needs: No Female Reproductive History Menstrual Age of Menarche: 17 Duration of menses: other Date of last menstrual period: 12/15/23 control method: none Total pregnancies: 0 Physical Exam Vital Signs: Last Vital Signs BP 100/62 01/27/24 11:44 BMI result Body Mass Index 30.6 Const Other: Thinning of hair at top of scalp noted evidence of acne scars chin and groin and thighs. Patient has increased body hair including here around her breasts she gets hair around her chin lasered. General: healthy appearing, comfortable, no acute distress, well developed and alert Nutritional Appearance: average body habitus Orientation/consciousness: patient oriented x3 Limitations: no limitations HEENT Head: Yes normocephalic Neck Neck: Yes normal visual inspection Thyroid: Thyroid normal Chest Chest palpation & inspection: normal inspection of the chest Breast/axilla inspection: normal inspection of the breasts and normal inspection of the axillae Breast/axilla palpation: normal palpation of the breasts and normal palpation of the axillae Resp Effort & Inspection: normal respiratory effort GI Inspection: Yes normal to inspection, No Abdominal wall edema and No distended Palpation (GI): Soft to palpation and nontender Other: Patient declined speculum exam pelvic exam for culture reasons she is virginal and wishes to preserve her virginity. Discussed reasons for cervical cancer scr eening regardless of this she declines. Suggested did she ensure that she is vaccinated for HPV regardless as well. External Female Exam: normal external appearance and normal appearance of the urethra Neuro General: patient oriented x3 Assessment & Plan Assessment & Plan (1) Cervical cancer screening: Comment: Declines pelvic exam Pap smear today secondary to culture reasons desiring to preserve virginity. Discussed ASCCP guidelines recommend getting HPV vaccine.. Code(s): Z12.4 - Encounter for screening for malignant neoplasm of cervix Category: Medical (2) Well woman exam (no gynecological exam): Comment: Declines pelvic Exam and Pap smear today secondary to cultural reasons Code(s): Z00.00 - Encounter for general adult medical examination without abnormal findings Category: Medical (3) Hirsutism: Code(s): L68.0 - Hirsutism Category: Medical (4) Acne: Code(s): L70.9 - Acne, unspecified Category: Medical (5) Obesity: Comment: Discussed with patient requests weight management referral; reports she lost a lot of weight and is trying to better and lose wt in a more healthy way now.- mo'b Code(s): E66.9 - Obesity, unspecified Category: Medical (6) History of irregular menstrual bleeding: Code(s): Z87.42 - Personal history of other diseases of the female genital tract Category: Medical (7) Cervical cancer screening: Comment: Declines pelvic exam Pap smear today secondary to culture reasons desiring to preserve virginity. Discussed ASCCP guidelines recommend getting HPV vaccine.. Code(s): Z12.4 - Encounter for screening for malignant neoplasm of cervix Category: Medical (8) Well woman exam (no gynecological exam): Comment: Declines pelvic Exam and Pap smear today secondary to cultural reasons Code(s): Z00.00 - Encounter for general adult medical examination without abnormal findings Category: Medical Plan Patient is here for new slitter service and setter exam. She had 1 dormitory keeper visit when she was a teenager that she thinks her father drove her to she was going to [facility] for pediatric care at the time and she was having very irregular periods she has always had and she was given control pills they helped regulate her periods but then she had a lot of acne so she stopped pills she thought they were causing. She also does not like to take medications she does not need to take. She has never had sex with anyone she is virginal she is very concerned and we did discuss recommendations for cervical cancer screening at this visit but she declines as she wishes not to have a pelvic exam at this time and may decline until after marriage. Prevention of HPV related diseases was discussed and I recommend she ensure that she gets vaccinated which she thinks she did not get as a teenager. She has irregular periods and has had some all her life when she was younger she lost a lot a weight by dropping to 400 calories a day and she also lost a lot of hair at the time it is starting to come but she does have some meal pattern hair loss and she does have hirsutism that she deals with by getting laser treatments. She is interested in seeing tire builder heavy service as well. She gets periods very irregularly the last 2 were 6 weeks apart but they can be more irregular than the and they have always been that way. 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 Discussed awareness and risks of sexually transmitted infections if or when she does become sexually active. She says she is aware I highly recommend vaccinated for the HPV virus and also having discussions and asking for partner checks which in her case would be before marriage. She will consider in the future if she is comfortable getting a Pap smear. Discussed evaluation of the possible PCOS picture which she has multiple signs and symptoms of. Discussed doing some lab work and I did see that her fasting blood sugar done recently was very slightly elevated so that as well as doing testosterone another levels in addition I am ordering a pelvic ultrasound I did tell her that part of that exam is vaginal but she may decide to accept do declined that as she so chooses on that day. She will be seeking out a dermatology referral from her [facility]. I am ordering the HPV vaccine if her insurance covers her getting it in our office otherwise she will seek it out a pharmacy. Discussed PCOS and that she has many of the hallmarks we will see her after the ultrasound and the lab work to review it all. ---Discussed PCOS in general and specifically about the interplay of the abnormal hormonal milieu related to being overweight, with the elevations of many hormone levels, including testosterone and estrogen, as well as others that contribute to cycles that are anovulatory and therefore prolonged, and when periods do come they come very heavy, and can contribute to lots of cramping, with passage of clots and anemia. Discussed the common symptoms related to the elvated hormonal levels, including increased facial hair, male pattern hair thinning, acne, and increased central abdominal girth. Discussed the interplay with difficulty getting when desired, but still possible, and therefore the need to contracept as appropriate and when needed. Discussed the role of weight loss as the primary, most important, and most likely to succeed, intervention, in achieving healthier status as regards PCOS, and ovulatory regular cycles. Additionally the very important relationship to elevated insulin levels, and blood sugars, and high risk of pre diabetes, progressing to diabetes as well as other metabolic syndromes related to this was discussed. Also discussed common interventions for some of the above, including if appropriate, use of oral contraceptives, and progestin iuds, and provera. Orders: Orders DHEA Sulfate Today E66.9 - Obesity, unspecified, L68.0 - Hirsutism, L70.9 - Acne, unspecified, Z00.00 - Encounter for general adult medical examination without abnormal findings, Z12.4 - Encounter for screening for malignant neoplasm of cervix, Z87.42 - Personal history of other diseases of the female genital tract Prolactin Today E66.9 - Obesity, unspecified, L68.0 - Hirsutism, L70.9 - Acne, unspecified, Z00.00 - Encounter for general adult medical examination without abnormal findings, Z12.4 - Encounter for screening for malignant neoplasm of cervix, Z87.42 - Personal history of other diseases of the female genital tract US pelvic and transvaginal Today E66.9 - Obesity, unspecified, Z00.00 - Encounter for general adult medical examination without abnormal findings, Z12.4 - Encounter for screening for malignant neoplasm of cervix, Z87.42 - Personal history of other diseases of the female genital tract Human Papillomavirus Immunization Today L68.0 - Hirsutism, L70.9 - Acne, unspecified, Z00.00 - Encounter for general adult medical examination without abnormal findings, Z12.4 - Encounter for screening for malignant neoplasm of cervix, Z23 - Encounter for immunization, Z87.42 - Personal history of other diseases of the female genital tract Glucose Random Today E66.9 - Obesity, unspecified, L68.0 - Hirsutism, L70.9 - Acne, unspecified, Z00.00 - Encounter for general adult medical examination without abnormal findings, Z12.4 - Encounter for screening for malignant neoplasm of cervix, Z87.42 - Personal history of other diseases of the female genital tract Testosterone, Free/Total Today E66.9 - Obesity, unspecified, L68.0 - Hirsutism, L70.9 - Acne, unspecified, N92.6 - Irregular menstruation, unspecified, Z00.00 - Encounter for general adult medical examination without abnormal findings, Z12.4 - Encounter for screening for malignant neoplasm of cervix, Z87.42 - Personal history of other diseases of the female genital tract Medications: New Gardasil 9 (PF) (human papillomav vac,9-raji(PF)) 0.5 mL IM ONCE 0.5 mL 0RF NS L68.0 - Hirsutism, L70.9 - Acne, unspecified, Z00.00 - Encounter for general adult medical examination without abnormal findings, Z12.4 - Encounter for scre ening for malignant neoplasm of cervix, Z23 - Encounter for immunization, Z87.42 - Personal history of other diseases of the female genital tract Coding Level of Care Code New Pt Prev Care 18-39yr([id number] Diagnoses Cervical cancer screening Z12.4 Well woman exam (no gynecological exam) Z00.00 Hirsutism L68.0 Acne L70.9 Obesity E66.9 History of irregular menstrual bleeding Z87.42
== END 2024-01-27 12:45 | disposition home or self-care (01) ==
LOC: HO.HWSM 11:40
PROVIDERS: PCP Internal Medicine; Visit Provider Advanced Practice Midwife
DX: Z01.419 Encounter for gynecological examination (general) (routine) without abnormal findings (principal); L68.0 Hirsutism; L70.9 Acne, unspecified; E66.9 Obesity, unspecified; Z87.42 Personal history of other diseases of the female genital tract
CPT/HCPCS: 99385

== ENCOUNTER → 2024-01-27 11:40 | Outpatient (BNVA) | payer OTHER, SELFPAY | PROVIDERS: PCP Internal Medicine; Visit Provider Advanced Practice Midwife | DX: Z12.4 Encounter for screening for malignant neoplasm of cervix (principal); Z00.00 Encounter for general adult medical examination without abnormal findings; L68.0 Hirsutism; L70.9 Acne, unspecified; E66.9 Obesity, unspecified; Z87.42 Personal history of other diseases of the female genital tract; Z68.30 Body mass index [BMI] 30.0-30.9, adult | CPT/HCPCS: 99385 ==

== ENCOUNTER 2024-02-10 13:05 | Outpatient (REF) | payer OTHER, SELFPAY ==
--- NOTE | ~2024-02-10 | US_ITS ---
EXAMINATION: US PELVIS, LIMITED/FOLLOW UP CLINICAL INFORMATION: Irregular menses is COMPARISON: None available. TECHNIQUE: Transabdominal imaging of the pelvis was performed. Technologist notes: Patient refused transvaginal examination. FINDINGS: The uterus is anteverted, anteflexed measuring 7 x 3 x 4.5 cm in the sagittal, AP and transverse dimensions. No focal myometrial lesions. The endometrial thickness is within normal limits measuring 0.2 cm. Bilateral ovaries are visualized and appear remarkable. The right ovary measures 4.3 x 2.3 x 3.9 cm with a volume of 20 mL. The left ovary measures 3.8 x 1.8 x 4 cm with a volume of 14 mL. No adnexal mass lesions. No free fluid in the pelvis. US/US pelvic limited IMPRESSION: Unremarkable sonographic appearance of the uterus and bilateral ovaries.
== END 2024-02-10 13:06 | disposition home or self-care (01) ==
LOC: HO.HMGCX 13:05
PROVIDERS: PCP Internal Medicine; Visit Provider Advanced Practice Midwife
DX: Z00.00 Encounter for general adult medical examination without abnormal findings (principal); N92.6 Irregular menstruation, unspecified; E66.9 Obesity, unspecified
CPT/HCPCS: 76857

== ENCOUNTER 2024-02-17 11:04 | Outpatient (REF) | payer OTHER, SELFPAY ==
[2024-02-17 13:28] LABS: Glucose Random 105 mg/dL (60-115)
[2024-02-18 07:34] LABS: DHEA Sulfate 312 mcg/dL (14-349); Prolactin 6.6 ng/mL
[2024-02-23 13:44] LABS: Testosterone, Free 7.1 pg/mL (0.1-6.4); Testosterone, Total 54 ng/dL (2-45)
== END 2024-02-17 11:05 | disposition home or self-care (01) ==
LOC: HO.HHCL 11:04
PROVIDERS: Visit Provider Advanced Practice Midwife
DX: Z00.00 Encounter for general adult medical examination without abnormal findings (principal); L70.9 Acne, unspecified; L68.0 Hirsutism; E66.9 Obesity, unspecified; N92.6 Irregular menstruation, unspecified; Z12.4 Encounter for screening for malignant neoplasm of cervix; Z87.42 Personal history of other diseases of the female genital tract
CPT/HCPCS: 36415; 82627; 82947; 84146; 84402; 84403

== ENCOUNTER 2024-02-24 10:23 | Outpatient (AMB) | payer OTHER, SELFPAY ==
[2024-02-24 10:29] VITALS: BP 120/70
--- NOTE | 2024-02-24 10:29 | A.OFFVIS_ITS ---
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 She has a history hirsute is Um and irregular menses she is virginal and declined pelvic exam and Pap smear. [facility] Medical History Obesity Vitamin D deficiency Obesity (BMI 30-39.9) Surgical History History of esophagogastroduodenoscopy (EGD) S/P LASIK surgery Family History Mother Arthritis Diabetes High cholesterol High blood pressure Heart problem Father High blood pressure Diabetes High cholesterol Arthritis Other Mental health problem Social History Housing: House Alcohol intake: never Patient Tobacco Use Status: Never used Tobacco Second Hand Smoke Exposure: Yes service: No Current occupational status: employed Cognitive needs: No Hearing needs: No Vision needs: No Female Reproductive History Menstrual Age of Menarche: 17 Duration of menses: 3-5 days Date of last menstrual period: 02/06/24 control method: none Total pregnancies: 0 History of abnormal pap smear: No (no previous pap) Physical Exam Vital Signs: Last Vital Signs BP 120/70 02/24/24 10:29 BMI result Body Mass Index 30.0 Results Reviewed Results Reviewed: [facility] [address] [facility] [place] [address] Ultrasound Report Signed Patient: Eduard Puente MR#: [id number] : 1995 Acct:[id number] Age/Sex: 28 / F ADM Date: 02/10/24 Loc: HO.HMGCX Attending Dr: Esperanza Sheikh [facility] Ordering Physician: Esperanza Sheikh CNM Date of Service: 02/10/24 Procedure(s): US pelvic limited Accession Number(s): [id number] cc: Jesús Simon MD; Esperanza Sheikh CNM~ EXAMINATION: US PELVIS, LIMITED/FOLLOW UP CLINICAL INFORMATION: Irregular menses is COMPARISON: None available. TECHNIQUE: Transabdominal imaging of the pelvis was performed. Technologist notes: Patient refused transvaginal examination. FINDINGS: The uterus is anteverted, anteflexed measuring 7 x 3 x 4.5 cm in the sagittal, AP and transverse dimensions. No focal myometrial lesions. The endometrial thickness is within normal limits measuring 0.2 cm. Bilateral ovaries are visualized and appear remarkable. The right ovary measures 4.3 x 2.3 x 3.9 cm with a volume of 20 mL. The left ovary measures 3.8 x 1.8 x 4 cm with a volume of 14 mL. No adnexal mass lesions. No free fluid in the pelvis. US/US pelvic limited IMPRESSION: Unremarkable sonographic appearance of the uterus and bilateral ovaries. Dictated By: Gume Villasenor Signed By: <Electronically signed by Gume Villasenor in OV> 02/16/24 0922 DD/ 1330 TD/TT: Pediatric Oncologist: Name: Eduard Puente Age/Sex: 28/F : 1995 Unit#: [id number] Attend Dr: Esperanza Sheikh CNM Re02/17/24 Status: DEP REF Location: [facility] Disch: SPEC : [id number] ROSIE: 02/17/24 STATUS: COMP REQ : [id number] RECD: 02/17/24-[address]: Esperanza Sheikh CNM COMP: 02/17/24 ENTERED: 02/17/[address]: ORDERED: Glu Random Test Result Flag Reference Glucose, Random 105 60-115 mg/dL Name: Eduard Puente Age/Sex: 28/F : 1995 Unit#: [id number] Attend Dr: KoriEsperanza [facility] Re02/17/24 Status: DEP REF Location: [facility] Disch: SPEC : [id number] ROSIE: 02/17/24 STATUS: COMP REQ : [id number] RECD: 02/17/[address]: KoriEsperanza [facility] COMP: 02/23/24 ENTERED: 02/17/[address]: ORDERED: Prol, DHEAS, Testost Fr & T Test Result Flag Reference Prolactin 6.6 ng/mL Reference Range Females Non- 3.0-30.0 10.0-209.0 Postmenopausal 2.0-20.0 THIS TEST WAS PERFORMED AT: [facility] [address] [place] [id number] LYDIA LOPEZ MD DHEA-Sulfate 312 14-349 mcg/dL THIS TEST WAS PERFORMED AT: [facility] [address] [place] [id number] LYDIA LOPEZ MD Testost, Tot 54 H 2-45 ng/dL For additional information, please refer to [email or web address] (This link is being provided for informational/ educational purposes only.) This test was developed and its analytical performance characteristics have been determined by [facility] [place] [place]. It has not been cleared or approved by the U.S. Food and Drug Administration. This assay has been validated pursuant to the CLIA regulations and is used for clinical purposes. Testost, Free 7.1 H 0.1-6.4 pg/mL This test was developed and its analytical performance characteristics have been determined by [facility] [place] [place]. It has not been cleared or approved by the U.S. Food and Drug Administration. This assay has been validated pursuant to the CLIA regulations and is used for clinical purposes. THIS TEST WAS PERFORMED AT: [employer] [address] [place] [address] HENOK ZABALA MD,PHD UN: 02/24/24 1105 PAGE 1 [facility] [address] [place] [id number] Horse Trainer: Lenard Reyes M.D. Specimen Inquiry Name: Eduard Puente Age/Sex: 28/F : 1995 Unit#: [id number] Attend Dr: Jesús Simon MD Re11/09/23 Status: DEP [facility] Disch: SPEC : [id number] ROSIE: 11/09/23-1350 STATUS: COMP REQ : [id number] RECD: 11/09/23-[address]: Jesús Simon MD COMP: 11/09/23-1453 ENTERED: 11/09/23-[address]: ORDERED: CMP Fast, Lipid Panel, Vitamin D 25-OH, TSH Rflx Test Result Flag Reference Sodium 139 135-145 mmol/L Potassium 4.2 3.3-5.1 mmol/L CL 107 96-108 mmol/L CO2 28 22-29 mmol/L Gap 8 L 12-20 BUN 12 9-16 mg/dL Creat 0.70 0.5-1.4 mg/dL EGFR > 60 NOTE: For -Maldivian individuals, multiply the result by 1.210. Chronic Kidney Disease: Estimated GFR < 60 mL/min/1.73m2 Severe Kidney Disease: Estimated GFR < 15 mL/min/1.73m2 FBS 102 H 60-99 mg/dL A fasting glucose from 100-125 mg/dl is considered impaired (pre-diabetes). CA 9.1 # 8.4-10.2 mg/dL Total Bili 0.2 0.0-1.0 mg/dL AST (GOT) 18 5-31 U/L ALT (GPT) 15 0-31 U/L Protein, Total 7.5 6.5-8.0 g/dL Alb 4.2 3.5-5.0 g/dL Triglyceride 101 <150 mg/dL Desirable Triglyceride: less than 150 mg/dL Borderline High Triglyceride 150-199 mg/dL High Triglyceride: 200-499 mg/dL Very High Triglyceride: greater than or equal to 5OO mg/dL Cholesterol 180 <200 mg/dL Desirable Cholesterol: less than 200 mg/dL Borderline High Cholesterol: 200-239 mg/dL High Cholesterol: greater than 239 mg/dL LDL Calculated 115 H <100 mg/dL Desirable LDL: less than 100 mg/dL Near Optimal/Above Optimal LDL: 110-129 mg/dL Borderline High LDL: 130-159 mg/dL High LDL: 160-189 mg/dL Very High LDL: greater than or equal to 190 mg/dL HDL 45 >40 mg/dL Desirable HDL: greater than 40 mg/dL Note: This HDL assay may give artificially low results in patients with liver disease. Alk Phos 44 39-117 U/L Vit D 25-OH Tot 22.2 L >30 ng/mL Health Based Reference Values* < 20 ng/mL Deficient 20-30 ng/mL Insufficient > 30 ng/mL Sufficient *Cari DIAZ. N Engl J Med. 2007;357:266-280 Care must be taken in interpreting Vitamin D results from different laboratories and methodologies. Published data demonstrated that results from patients undergoing hemodialysis may show a negative bias when tested with various automated 25-OH vitamin D assays when compared to LC-MS/MS. When testing samples from patients whose predominant form of Vitamin D is Vitamin D2, such as patients receiving Vitamin D2 supplementation, results that are subtherapeutic should be confirmed with another method such as LC-MS/MS. TSH 0.57 0.32-4.0 uIU/mL Assessment & Plan Assessment & Plan (1) History of irregular menstrual bleeding: Code(s): Z87.42 - Personal history of other diseases of the female genital tract Category: Medical (2) Acne: Code(s): L70.9 - Acne, unspecified Category: Medical (3) Hirsutism: Code(s): L68.0 - Hirsutism Category: Medical (4) Cervical cancer screening: Comment: Declines pelvic exam Pap smear today secondary to culture reasons desiring to preserve virginity. Discussed [facility] guidelines recommend getting HPV vaccine.. Code(s): Z12.4 - Encounter for screening for malignant neoplasm of cervix Category: Medical (5) Elevated fasting glucose: Code(s): R73.01 - Impaired fasting glucose Category: Medical Plan I reviewed her ultrasound and the labs that I had ordered as well as her previously done fasting labs. Reviewed the slightly elevated fasting glucose and the elevated testosterone levels. Her ultrasound was completely within normal limits reviewed her menses again review the possibility option of taking control pills to regularize her cycles. Discussed caution if they ever do become much more irregular and she is continuing her efforts to maintain herself in a healthy weight range as much as possible discussed the challenges of weight gain as regards hormonal feedback and menses irregularity and buildup of the lining of the uterus over time. Review the normal ranges as well. we reflected on the fact that it is unknown what population base the norms were decided on, in the testosterone levels given, ethnic and genetic tendencies. She is very aware and is taking care. She is going to be getting the HPV vaccine from her local pharmacy. Reviewed annual exams she would intend to decline speculum and pelvic exams until she is no longer virginal and is . Coding Level of Care Code Est Pt Level 3 (39668) Diagnoses History of irregular menstrual bleeding Z87.42 Acne L70.9 Hirsutism L68.0 Cervical cancer screening Z12.4 Elevated fasting glucose R73.01
== END 2024-02-24 11:03 | disposition home or self-care (01) ==
LOC: HO.HWSM 10:23
PROVIDERS: PCP Internal Medicine; Visit Provider Advanced Practice Midwife
DX: Z87.42 Personal history of other diseases of the female genital tract (principal); L70.9 Acne, unspecified; L68.0 Hirsutism; Z12.4 Encounter for screening for malignant neoplasm of cervix; R73.01 Impaired fasting glucose
CPT/HCPCS: 99213

== ENCOUNTER → 2024-02-24 10:23 | Outpatient (BNVA) | payer OTHER, SELFPAY | PROVIDERS: PCP Internal Medicine; Visit Provider Advanced Practice Midwife | DX: Z12.4 Encounter for screening for malignant neoplasm of cervix (principal); L70.9 Acne, unspecified; L68.0 Hirsutism; R73.01 Impaired fasting glucose; Z87.42 Personal history of other diseases of the female genital tract | CPT/HCPCS: 99212 ==

== ENCOUNTER 2024-05-11 15:36 | Outpatient (AMB) | payer OTHER, SELFPAY ==
[2024-05-11 15:49] VITALS: BP 118/80; PULSE 65; O2SAT 99; BMI 28.9
--- NOTE | 2024-05-11 15:49 | MHC.PC.OV ---
Vital Signs 05/11/24 15:49 Height 5 ft 8 in Weight 190 lb 2 oz BMI 28.9 BP 118/80 Blood Pressure Location Lt brachial Position Sitting Pulse 65 Pulse Source Pulse Oximeter Pulse Oximetry (%) 99 Oxygen Delivery Method Room Air Intake Visit Reasons: liver lesion Marketing Sales Representative Required: No Accompanied by: Self / Same As Patient Allergies No Known Drug Allergies Allergy (Unknown, Verified 05/11/24 15:49) Unknown Tobacco use date assessed: 05/11/24 Dental Screening Dental Screen Date: 05/11/24 Did you have a dental visit in the last 12 months?: Yes Did you have a dental problem in the last 6 months where you did not have access to dental care?: No Was dental information given to patient?: Patient has dentist HPI liver lesion HPI Details Patient comes in today for her follow up visit States that she feels okay She denies any headaches or dizziness Denies any chest pains, no SOB No nausea/vomiting, no abdominal pain but states that she still has to take her Simethicone often due to frequent abdominal gas and discomfort No change in bowel habits noted She had EGD done by Dr. Velázquez back in October 2023, which revealed only (+) mild esophagitis at the GE junction Biopsies taken at the esophagus and GE junction revealed (+) mild chronic inflammation, with no intestinal metaplasia and dysplasia Gastric Bx revealed (+) changes of minimal chronic inactive gastritis, negative for H pylori, intestinal metaplasia and dysplasia; duodenal Bx came back normal She was advised to continue to watch what she eats and to avoid any foods or drinks that tend to trigger ot aggravate her symptoms She would also like to know if there were any concerning findings on her labs done back in October 2023 [facility] Medical History Obesity Vitamin D deficiency Obesity (BMI 30-39.9) Surgical History History of esophagogastroduodenoscopy (EGD) S/P LASIK surgery Family History Mother Arthritis Diabetes High cholesterol High blood pressure Heart problem Father High blood pressure Diabetes High cholesterol Arthritis Other Mental health problem Social History Housing: House Alcohol intake: never Patient Tobacco Use Status: Never used Tobacco Second Hand Smoke Exposure: Yes service: No Current occupational status: employed Cognitive needs: No Hearing needs: No Vision needs: No Female Reproductive History Menstrual Age of Menarche: 17 Questionnaire PHQ-9 Over the last 2 weeks, how often have you been bothered by any of the following problems? 1. Little interest or pleasure in doing things: not at all 2. Feeling down, depressed, or hopeless: not at all 3. Trouble falling or staying asleep, or sleeping too much: not at all 4. Feeling tired or having little energy: not at all 5. Poor appetite or overeating: not at all 6. Feeling bad about yourself - or that you are a failure or have let yourself or your family down: not at all 7. Trouble concentrating on things, such as reading the newspaper or watching television: not at all 8. Moving or speaking so slowly that other people could have noticed. Or the opposite - being so fidgety or restless that you have been moving around a lot more than usual: not at all 9. Thoughts that you would be better off or of hurting yourself in some way: not at all Total score: 0 Depression Screening Interpretation: Negative Depression Screening Done: Yes 21846 - PHQ-9 Billing: Yes Source: Developed by Drs. Bo Esparza, Samira Kincaid, Curtis Mendosa and colleagues, with an educational joaquin from [employer]. Thrive Questionnaire Date Thrive assessed: 05/11/24 I am a: Patient What is your living situation today?: I have a steady place to live Within the past 12 months, did the food you bought not last and you didn't have the money to get more?: Never true Within the past 12 months, did you worry whether your food would run out before you got money to buy more?: Never true Do you have trouble paying for medicines?: No Do you have trouble getting transportation to medical appointments?: No Do you have trouble paying your heating and electricity bill?: No Do you have trouble taking care of your child, family member or friend?: No Do you have trouble with day-to-day activities such as bathing, preparing meals, shopping, managing finances, etc.?: No Are you currently unemployed and looking for a job?: No Are you interested in more education?: No Please select the resources that you would like help with: None Currently or been in a relationship where the following occur: No concerns reported THRIVE Score: 0 AUDIT C Alcohol Use Questionnaire (AUDIT-C) 1. How often do you have a drink containing alcohol?: Never 3. How often do you have six or more drinks on one occasion?: Never Total Score: 0 Score Reviewed/Action Taken: Yes SRUTHI-7 AMB Questionnaire SRUTHI-7 Date SRUTHI - 7 assessed: 05/11/24 Feeling nervous, anxious, or on edge: 0 = Not at all Not being able to stop or control worryin = Not at all Worrying too much about different things: 0 = Not at all Trouble relaxin = Not at all Being so restless that it is hard to sit still: 0 = Not at all Becoming easily annoyed or irritable: 0 = Not at all Feeling afraid as if something awful might happen: 0 = Not at all Total SRUTHI-7 score (0-4 normal; 5-9 mild; 10-14 moderate; 15-21 severe): 0 Source: Developed by Drs. Bo Esparza, Samira Kincaid, Curtis Mendosa and colleagues, with an educational joaquin from [employer]. Review of Systems Const Denies chills, Denies fatigue, Denies fever(s) and Denies headache(s) ENT Denies dysphagia, Denies dizziness, Denies otalgia, Denies headache(s), Denies neck pain, Denies odynophagia and Denies sore throat Card Denies chest pain, Denies irregular heart rhythm, Denies palpitations and Denies dyspnea Resp Denies chest congestion, Denies cough and Denies dyspnea GI Denies abdominal pain, Reports belching (stomach feels gassy often), Reports bloating (on and off, depending on what she eats), Denies constipation, Denies dysphagia, Denies heartburn, Denies diarrhea, Denies nausea, Denies odynophagia and Denies vomiting Denies urinary frequency, Denies dysuria and Denies urinary incontinence Musc Denies back pain, Denies arthralgias and Denies neck pain Skin/Breast Denies rash Neuro Denies dizziness, Denies headache(s) and Denies paresthesias Psych Denies anxiety and Denies depression Endo Denies fatigue and Denies palpitations Praveen/Lymph Denies easy bruising Physical exam (Primary Care) Vital Signs: Last Vital Signs Pulse 65 05/11/24 15:49 BP 118/80 05/11/24 15:49 Pulse Ox 99 05/11/24 15:49 Oxygen Delivery Method Room Air 05/11/24 15:49 BMI result Body Mass Index 28.9 Tobacco/Smoking Status: Tobacco use Status Tobacco use date assessed 05/11/24 05/11/24 15:54 Patient Tobacco Use Status Never used Tobacco 05/11/24 15:54 PHQ-9: PHQ-9 Score PHQ-9: Total score 0 05/11/24 16:46 Depression Screening Interpretation: Negative Thrive Assessment: Date of Thrive Assessment Date Thrive assessed 05/11/24 05/11/24 15:54 Currently or been in a relationship where the following occur: No concerns reported Const General: no acute distress and alert HENMT Ears: TM's normal bilaterally and EAC's normal Throat: Yes posterior oropharynx normal and Yes tonsils normal (no TP congestion) Neck Neck: Yes no lymphadenopathy and Yes supple Thyroid: Thyroid normal Resp Auscultation: clear to auscultation bilaterally, no rales and no wheezes Cardio Rate: regular rate Rhythm: regular rhythm Heart sounds: no murmurs GI Palpation (GI): Soft to palpation and nontender Auscultation: normal bowel sounds General: Yes no CVA tenderness Back/Spine/Pelvis Back: no CVA tenderness Thoracic/Lumbar Spine: thoracic and lumbar spine normal to inspection Skin Rashes: no rashes Extrem General: Yes no clubbing, cyanosis or edema Results Reviewed Results Reviewed: Laboratory Tests 11/09/23 13:51 WBC 7.8 Hgb 11.2 L Hct 37.4 Plt Count 271 Sodium 139 Potassium 4.2 Creatinine 0.70 Estimated GFR > 60 Fasting Glucose 102 H Hemoglobin A1c % 5.5 Calcium 9.1 D AST 18 ALT 15 Triglycerides 101 Cholesterol 180 LDL Cholesterol, Calc 115 H HDL Cholesterol 45 25-OH Vitamin D Total 22.2 L TSH 0.57 Laboratory Tests 11/09/23 13:51 Vitamin B12 706 Assessment and Plan Assessment & Plan (1) Esophagitis with gastritis: Code(s): K29.70 - Gastritis, unspecified, without bleeding; K20.90 - Esophagitis, unspecified without bleeding Plan: EGD done by Dr. Velázquez in October 2023 revealed only (+) mild esophagitis at the GE junction Biopsies taken at the esophagus and GE junction revealed (+) mild chronic inflammation, with no intestinal metaplasia and dysplasia Gastric Bx revealed (+) changes of minimal chronic inactive gastritis, negative for H pylori, intestinal metaplasia and dysplasia; duodenal Bx came back normal Reinforced dietary restrictions, and patient is again provided with a gross list of trigger foods and drinks to avoid in order to minimize aggravating her symptoms Continue Simethicone 125 mg TID-QID PRN She has tried taking PPI (Omeprazole and Pantoprazole) in the past but she did not find these helpful States that she mostly just avoids eating anything that has bothered her or triggered her symptoms in the past and this has helped her a lot better Have advised that she can try some OTC Probiotics, as mentioned by Dr. Velázquez in his EGD report Follow up with GI as scheduled (2) Lesion of right lobe of liver: Code(s): K76.9 - Liver disease, unspecified Plan: These were seen incidentally on abdominal CT done back in August 2022 - CT revealed the presence of two hepatic lesions that may possibly representing hemangiomas and they recommended further characterization with an MR of the abdomen with and without intravenous contrast. The duodenum was partially underdistended, limiting its assessment and an upper endoscopy should be considered Patient eventually had EGD done in October 2023 - see above She was sent for an MRI of the abdomen to further evaluation the 2 right liver lesions seen on previous CT but patient states that she was never called back to get this scheduled Will at least send her for an abdominal US at this time to reassess her liver regarding these 2 hepatic lesions that were seen incidentally on CT and if they are still present and have progressed from last year, then will try to send her for an MRI again for further evaluation (3) Anemia: Code(s): D64.9 - Anemia, unspecified Qualifiers: Anemia type: iron deficiency Iron deficiency anemia type: inadequate dietary iron intake Qualified Code(s): D50.8 - Other iron deficiency anemias Plan: Results of her labs done back in October 2023 reviewed and discussed with patient - her last H/H was at 11.2/37.4 in October 2023 She was started previously on oral iron supplements (Ferrous Sulfate 325 mg QD) but she has not taken this in months Will recheck her CBC and labs in 6 months for follow up (4) High serum vitamin B12: Code(s): R79.89 - Other specified abnormal findings of blood chemistry Plan: Patient had a very high B12 level of 1149 pg/ml when it was first checked in 2021; repeat B12 level last October) was down to 706 pg/ml Patient states that she is just taking some OTC multivitamins daily and is not really taking any B12 supplements Will continue to monitor this regularly for now (5) Vitamin D deficiency: Code(s): E55.9 - Vitamin D deficiency, unspecified Plan: Her Vitamin D level was low when it was last checked in October 2023 Have advised her to start taking some OTC Vitamin D3 2000 units QD (6) Obesity (BMI 30-39.9): Code(s): E66.9 - Obesity, unspecified Plan: Reinforced diet/exercise as tolerated/lose weight I have advised her previously that given her frequent GI symptoms, I would not recommend any of the new, injectable weight loss Rx for her as most or all of these tend to be associated with a lot of potential GI side effects and are likely to affect or aggravate her current symptoms Patient has instead requested for a referral to a placement officer to get some professional guidance of her diet I will go ahead and try referring her to a placement officer/dietitian but have advised her that they may not be able to see her for this if this is not covered by her insurance Plan To return in 6 months for her next annual physical examination Orders: Orders US abdomen complete 05/11/24 K76.9 - Liver disease, unspecified Complete Blood Count Auto Diff 11/03/24 D64.9 - Anemia, unspecified, Z00.00 - Encounter for general adult medical examination without abnormal findings Lipid Panel 11/03/24 E78.00 - Pure hypercholesterolemia, unspecified, Z00.00 - Encounter for general adult medical examination without abnormal findings UA CC w/rflx Micro + Cult 11/03/24 R30.0 - Dysuria, Z00.00 - Encounter for general adult medical examination without abnormal findings Comprehensive [place]. Panel Fast 11/03/24 E78.00 - Pure hypercholesterolemia, unspecified, Z00.00 - Encounter for general adult medical examination without abnormal findings TSH reflex Free T4 11/03/24 E78.00 - Pure hypercholesterolemia, unspecified, Z00.00 - Encounter for general adult medical examination without abnormal findings Vitamin D 25-OH Total 11/03/24 E55.9 - Vitamin D deficiency, unspecified, Z00.00 - Encounter for general adult medical examination without abnormal findings Referrals Nutrition/Dietitian Referral K29.70 - Gastritis, unspecified, without bleeding, R14.0 - Abdominal distension (gaseous) Coding Level of Care Code Est Pt Level 4 (11209) Diagnoses Esophagitis with gastritis K29.70; K20.90 Lesion of right lobe of liver K76.9 Iron deficiency anemia secondary to inadequate dietary iron intake D50.8 Anemia type: iron deficiency Iron deficiency anemia type: inadequate dietary iron intake High serum vitamin B12 R79.89 Vitamin D deficiency E55.9 Obesity (BMI 30-39.9) E66.9
== END 2024-05-11 16:49 | disposition home or self-care (01) ==
PROVIDERS: PCP Internal Medicine; Visit Provider Internal Medicine
DX: K29.70 Gastritis, unspecified, without bleeding (principal); K20.90 Esophagitis, unspecified without bleeding; K76.9 Liver disease, unspecified; D50.8 Other iron deficiency anemias; R79.89 Other specified abnormal findings of blood chemistry; E55.9 Vitamin D deficiency, unspecified
CPT/HCPCS: 99214

== ENCOUNTER 2024-07-24 12:43 | Outpatient (REF) | payer OTHER, SELFPAY ==
[2024-07-27 07:29] LABS: TS Negative Control Passed; TS Panel A 0; TS Panel B 0; TS Positive Control Passed; TSpotTB Negative (Negative)
== END 2024-07-24 12:44 | disposition home or self-care (01) ==
LOC: HO.LAB 12:43
PROVIDERS: PCP Internal Medicine; Visit Provider Internal Medicine
DX: Z11.1 Encounter for screening for respiratory tuberculosis (principal)
CPT/HCPCS: 36415; 86481

== ENCOUNTER 2024-11-06 10:25 | Outpatient (REF) | payer MEDICAID, SELFPAY ==
[2024-11-06 11:02] LABS: MANUAL DIFF FLAG NO
[2024-11-06 11:58] LABS: Appearance Urine Clear; Color Urine Yellow; Glucose Urine UA Negative (Negative); Leukocyte Esterase Urine Negative (Negative); Nitrite Urine Negative (Negative); Specific Gravity - Urine 1.015 (1.005-1.025); UMIC TRIGGER UACC YES; Urine Blood Large (3+) (Negative); Urine Ketones Negative (Negative); Urine Protein Negative (Neg-Trace)
[2024-11-06 12:00] LABS: Basophils Percent Auto 0.7 % (0-2); Eosinophils Absolute Auto 0.1 X10*3/uL (0.0-0.4); Eosinophils Percent Auto 1.1 % (0-4); Hematocrit 38.9 % (37.0-47.0); Imm Gran Abs Auto 0.01 X10*3/uL (0.00-0.03); Imm Gran Pct Auto 0.2 % (0.0-0.4); Lymphocytes Percent Auto 34.9 % (20-40); Mean Corpuscular HGB Conc 30.8 g/dl (31.0-35.0); Mean Corpuscular Hemoglobin 23.3 pg (27.0-33.0); Mean Corpuscular Volume 75.7 fL (80.0-98.0); Mean Platelet Volume 11.5 fL (9.4-12.3); Monocytes Absolute Auto 0.3 X10*3/uL (0.1-1.2); Monocytes Percent Auto 6.1 % (2-11); Neutrophils Absolute Auto 3.2 x10*3/uL (2.0-8.3); Platelet Count 231 X10*3/uL (160-400); Red Blood Count 5.14 X10*6/uL (4.20-5.50); Red Cell Distribution Width 14.9 % (11.0-16.0); White Blood Count 5.6 X10*3/uL (4.8-10.8)
[2024-11-06 12:01] LABS: Bacteria Urine None Seen (None Seen); Hyaline Casts Urine 0-2 /LPF (0-2); RBC Urine >20 /HPF (0-2); Squamous Epithelial Cell Urine 0-2 /HPF (0-2); WBC Urine 0-5 /HPF (0-5)
--- OUTSIDE RECORDS SUMMARY | 2024-11-06 12:27 | XMS_ITS | Clinical Summary ---
Author Organization [facility] Address [address] [place] [address] Care Team Providers Care Marketing And Communications Officer Name Role Phone MaximilianKiara rivers MOISES-Shay Primary Care Provider Source Comments PLEASE NOTE, if this patient is a minor, it may be UNLAWFUL to discuss sensitive information that is contained in these records (such as FAMILY PLANNING, MENTAL HEALTH or SUBSTANCE ABUSE) with the minor patient's parent or other person without the patient's specific authorization.[facility] Allergies No known active allergies Medications simethicone (MYLICON) 125 mg chewable tabletIndicatio ns:Abdominal bloating Place 1 Tab into mouth, chew and swallow every 6 (six) hours as needed for flatulence 60 Tab 3 0 Active famotidine (PEPCID) 20 mg tabletIndicatio ns:Abdominal bloating Take 1 Tab by mouth 2 (two) times daily 60 Tab 3 0 Active cholecalciferol , vitamin D3, 25 mcg (1,000 unit) capsuleIndicati ons:Vitamin D deficiency Take 1 Cap by mouth once daily 90 Cap 3 0 Active Active Problems Problem Noted Date Diagnosed Date Amenorrhea, secondary 11/22/2014 Overview (11/22/2014): Pelvic US normal, normal ovaries. TSH and free T4 normal. Total testosterone mildly elevated. 17-dehydroxyprogesterone and DHEAS normal. Referred to endocrinology. Obesity 10/25/2013 Overview (04/23/2014): Pt is interested in weight clinic First appt 03/19/14 04/17/14 reminder letter for appt #2 on 04/23/14 is mailed to pt. 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 Refugee health examination 10/30/2013 0 03/01/2019 Overview (10/30/2013): [place] refugee from [place]. TB Screen by IOM: Pre-departure Antiparasitic Tx: Dental status: Nutritional Status: TB Status: tspot neg 10/25/13 Anemia Screen: 12.8/40.7 Total Eosinophil Count: 88 Lead: Stool O&P: UA heme/protein/gluc: neg Hep B Ag: neg HepB Ab/immunity: neg HIV: neg Varicella Titer: pos Immune to varicella 10/30/2013 03/01/20 19 Overview (10/30/2013): Via serology 10/25/13 Immunizations Name Administration Dates Next Due Flu, Cell Culture based, Pre servative Free, 6m+, Flucelvax 08/01/2017 Flu, Preservative Free 05/28/2016 HEP B, PED/ADOL 03/08/2014,11/22/2013,10/25/2013 HPV, QUADRIVALENT 07/12/2014,03/08/2014,01/04/20 14 Hep A, Ped/adol, 2 Dose 02/12/2015,01/03/2014 History Of Varicella 10/25/2013 INFLUENZA, SEASONAL, INJECTABLE 08/01/2017,07/12 INFLUENZA, SEASONAL, INJECTA BLE, PRESERVATIVE FREE 08/21/2015 IPV 02/12/2015, 4,11/22/2013,10/25 MENINGOCOCCAL MCV4P (MENACTRA) 01/03/2014 MMR (MMR II/Priorix) 11/22/2013,10/25/2013 MMRV, Live (Proquad) 10/25/2013 PNEUMOCOCCAL CONJUGATE PCV 13 02/12/2015 PPD 03/06/2018,01/03/2017 TDAP 10/25/2013 Td (adult), 5 Lf tetanus tox oid, preservative free 07/12/2014,11/22/2013 Social History Tobacco Use Types Packs/Day Years Used Date Smoking Tobacco: Never Smokeless Tobacco: Never Alcohol Use Standard Drinks/Week Comments Not Asked 0 (1 standard drink = 0.6 oz pur e alcohol) Social Connections Answer Date Recorded Connectedness 0 05/16/2024 Financial Resource Strain Answer Date R ecorded Financial Resource Strain 0 2018 Stress Answer Date Recorded Stress 0 04/21/2019 Physical Activity Answer Date Recorded Physical Activity 0 04/21/2019 Food Insecurity Answer Date Recorded Food 0 05/24/2024 Transportation Needs Answer Date Record ed Transportation 0 04/21/2019 Housing Stability Answer Date Recorded Housing 0 04/21/2019 Safety and Environment Answer Date Ismael rded Safety 0 04/21/2019 Utilities Answer Date Recorded Utilities 0 04/21/2019 Employment Answer Date Recorded Stress 0 05/16/2024 Comments No Sex and Gender Information Value Date Recorded Sex Assigned at Female 01/03/2017 10:43 AM PDT Legal Sex Female 8:49 AM PST Gender Identity Female 02/27/2018 11:40 AM PDT Sexual Orientation Straight 01/03/2017 10 :43 AM PDT Last Filed Vital Signs Vital Sign Reading Time Taken Comments Blood Pressure 110/80 04/04/2020 11:04 AM EDT Pulse 83 04/04/2020 11:04 AM EDT Temperature 36.8 ??C (98.2 ??F) 04/04/2020 11:04 AM E DT Respiratory Rate 16 04/04/2020 11:04 AM EDT Oxygen Saturation 100% 01/21/2016 10:12 AM EDT Inhaled Oxygen Concentration - - Weight 92.1 kg (203 lb) 04/04/2020 11:04 AM EDT Height 172.7 cm (5' 8 ) 04/04/2020 11:04 AM EDT Body Mass Index 30.87 04/04/2020 11:04 AM EDT Plan of Treatment Health Maintenance Due Date Last Done Comments HPV Screening 1997 Pap + HPV 1997 Tobacco Screening 1997 Relationship Safety Screening/Counseling 2012 Cervical Cancer Screening 2018 Pap Smear 2018 Annual Preventive Care Visit 04/04/202102/2020, 03/02/2019, 02/27/2018, Additional history exists Diabetes Screening 04/07/2021 04/07/2020, 0 04/07/2020, 03/02/2019, Additional history exists Hypertension Screening (#1) 04/04/2023 [id number] ( season) 2024 Imm-Influenza (#1) 2024 08/01/2017, 1 10/02/2016, 05/28/2016, Additional history exists Imm-DTaP/Tdap/Td (4 - Td or Tdap) 07/12/2024 07/12/2014, 11/22/2013, 10/25/2013 Alcohol and Drug Screen 08/29/2024 04/04/20 20, 03/10/2020, 03/02/2019, Additional history exists Depression Annual Screen 08/29/2024 04/04/2020, 03/2017 HIV Screening Completed 04/07/2020, 12/2018, 10/25/2013 Hepatitis C Screening Completed 04/07/2020 Cervical Ablation/Cold-Knife Conization Discontinued Cervical Cryotherapy Discontinued Colposcopy Discontinued Endometrial Biopsy Discontinued Excision/Leep Discontinued HPV Genotyping Discontinued Vaginal Pap Discontinued Vulvoscopy Discontinued Goals Goal Patient Goal Type Associated Problems Recent Progress Patient-Stated? Author Have 3 meals a day Diet On track( 015 3:38 PM PDT) No Suzy Bedolla RD Eat more fruits and vegetables Diet On track( 015 3:38 PM PDT) No Suzy Bedolla RD Increase physical activity Exercise On track( 015 3:38 PM PDT) No Suzy Bedolla RD Procedures Procedure Name Priority Date/Time Associated Diagnosis Comments ANTIBODY HIV-1&HIV-2 SINGLE RESULT Routine 04/07/2020 11:11 AM EDT Encounter for general adult medical examination w/o abnormal findings HEPATITIS A,B,C PANEL Routine 04/07/2020 11:11 AM EDT Encounter for general adult medical examination w/o abnormal findings HEMOGLOBIN GLYCOSYLATED A1C Routine 04/07/2020 11:11 AM EDT Encounter for general adult medical examination w/o abnormal findings from Last 3 Months or Most Recently Relevant to Health Maintenance Results * (ABNORMAL) HEPATITIS A,B,C PANEL (04/07/2020 11:11 AM EDT) HEPATITIS B SURFACE ANTIBODY POSITIVE(A) NEGATIVE [facility] HEPATITIS B SURFACE ANTIGEN NEGATIVE NEGATIVE [facility] Comment: Over the counter supplements containing high doses of biotin may interfere with this assay. ??If interference is suspected, patients shoud be retested after refraining from biotin supplements for 72 hours. HEPATITIS C VIRUS DIAGNOSTIC NEGATIVE NEGATIVE [facility] HEPATITIS A ANTIBODY TOTAL POSITIVE(A) NEGATIVE [facility] Comment: Over the counter supplements containing high doses of biotin may interfere with this assay. ??If interference is suspected, patients shoud be retested after refraining from biotin supplements for 72 hours. HEPATITIS B CORE ANTIBODY NEGATIVE NEGATIVE [facility] Blood specimen (specimen) Blood / Unknown 04/07/2020 11:11 AM EDT 04/07/2020 4:35 PM EDT Narrative [facility] - 04/07/2020 6:41 PM EDT [facility] [employer], [place] [address] Research Rn Spec - Page Ag MD PT ID [id number] ORD# [id number] [facility] - BLOOD DRAW [place] [address], * HIV-1 & HIV-2 ANTIBODIES (04/07/2020 11:11 AM EDT) HIV 1 AND 2 ANTIBODY SCREEN NEGATIVE NEGATIVE [facility] Comment: This assay is a 4th generation assay allowing for earlier detection of HIV infection by detecting the presence of the HIV-1 p24 antigen as well as the traditional antibodies to HIV type 1 (including group O) and type 2. ??Use of a 4th generation assay is the current CDC recommendation for HIV screening. Blood specimen (specimen) Blood / Unknown 04/07/2020 11:11 AM EDT 04/07/2020 4:35 PM EDT Narrative [facility] - 04/07/2020 7:10 PM EDT [employer], [place] [address] Research Rn Spec - Page Ag MD PT ID [id number] ORD# [id number] [facility] - BLOOD DRAW Edited Res ult - Final Performing Organization Address [facility]/[place] [address], * HEMOGLOBIN, GLYCOSYLATED (A1C) (04/07/2020 11:11 AM EDT) GLYCATED HEMOGLOBIN A1C 5.5 <6.5 % [facility] ESTIMATED AVERAGE GLUCOSE 111 mg/dL [facility] Blood specimen (specimen) Blood / Unknown 04/07/2020 11:11 AM EDT 04/07/2020 4:35 PM EDT Narrative [facility] - 04/07/2020 7:32 PM EDT [employer], [place] [address] Research Rn Spec - Page Ag MD PT ID [id number] ORD# [id number] [facility] - BLOOD DRAW Final Resu lt Performing Organization Address [facility]/ZIP Co de Phone Number [address] [address], from Last 3 Months or Most Recently Relevant to Health Maintenance Insurance [facility] Care Teams Marketing And Communications Officer Relationship Specialty Start Date End Date Kiara Yao FNP-C [address] [place] [address] PCP - General 02/05/22
[2024-11-06 13:05] LABS: Alanine Aminotransferase 35 U/L (0-31); Alkaline Phosphatase 40 U/L (39-117); Anion Gap 10 (12-20); Aspartate Amino Transferase 27 U/L (5-31); Bilirubin Total 0.2 mg/dL (0.0-1.0); Blood Urea Nitrogen 13 mg/dL (9-16); Calcium 8.7 mg/dL (8.4-10.2); Carbon Dioxide 28 mmol/L (22-29); Chloride 107 mmol/L (96-108); Cholesterol 181 mg/dL (<200); Estimated Glomerular Filt Rate > 60; Glucose Fasting 103 mg/dL (60-99); HDL Cholesterol 53 mg/dL (>40); LDL Cholesterol Calculated 116 mg/dL (<100); Potassium 4.6 mmol/L (3.3-5.1); Sodium 140 mmol/L (135-145); Total Protein 7.3 g/dL (6.5-8.0); Triglycerides 60 mg/dL (<150)
[2024-11-06 13:07] LABS: TSH reflex Free T4 0.88 uIU/mL (0.32-4.0)
== END 2024-11-06 10:26 | disposition home or self-care (01) ==
LOC: HO.LAB 10:25
PROVIDERS: PCP Internal Medicine; Visit Provider Internal Medicine
DX: Z00.00 Encounter for general adult medical examination without abnormal findings (principal); E78.00 Pure hypercholesterolemia, unspecified; E55.9 Vitamin D deficiency, unspecified; D64.9 Anemia, unspecified
CPT/HCPCS: 36415; 80053; 80061; 81001; 82306; 84443; 85025

== ENCOUNTER 2024-11-16 15:56 | Outpatient (AMB) | payer OTHER, SELFPAY ==
[2024-11-16 16:20] VITALS: BP 116/80; PULSE 74; O2SAT 97; BMI 27.9
--- NOTE | 2024-11-16 16:20 | A.OFFPC_ITS ---
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 Accompanied by: Self / Same As Patient Allergies No Known Drug Allergies Allergy (Unknown, Verified 11/16/24 16:44) Unknown Medication List - Last Reconciled 11/16/24 by Jesús Simon MD cholecalciferol (vitamin D3) 25 mcg PO DAILY multivitamin with minerals (Hair,Skin and Nails tablet) 1 tab PO DAILY simethicone (Gas Relief (simethicone)) 125 mg PO TID-QID PRN Tobacco use date assessed: 11/16/24 Dental Screening Dental Screen Date: 11/16/24 Did you have a dental visit in the last 12 months?: Yes Did you have a dental problem in the last 6 months where you did not have access to dental care?: No Was dental information given to patient?: Patient has dentist HPI Annual Exam HPI Details Patient comes in today for her annual physical examination States that she feels okay She denies any headaches or dizziness Denies any chest pains, no shortness of breath No nausea/vomiting, no abdominal pain No change in bowel habits noted She denies any acute urinary symptoms She had her follow up labs done last week - tp discuss her results States that she is up-to-date with yearly gynecology exam and pap smear [facility] Medical History Obesity Vitamin D deficiency Obesity (BMI 30-39.9) Surgical History History of esophagogastroduodenoscopy (EGD) S/P LASIK surgery Family History Mother Arthritis Diabetes High cholesterol High blood pressure Heart problem Father High blood pressure Diabetes High cholesterol Arthritis Other Mental health problem Social History Housing: House Alcohol intake: never Patient Tobacco Use Status: Never used Tobacco e-Cigarette/Vaping Use: Never Used Second Hand Smoke Exposure: Yes service: No Current occupational status: employed Cognitive needs: No Hearing needs: No Vision needs: No Female Reproductive History Menstrual Age of Menarche: 17 Questionnaire PHQ-9 Over the last 2 weeks, how often have you been bothered by any of the following problems? 1. Little interest or pleasure in doing things: not at all 2. Feeling down, depressed, or hopeless: not at all 3. Trouble falling or staying asleep, or sleeping too much: not at all 4. Feeling tired or having little energy: not at all 5. Poor appetite or overeating: not at all 6. Feeling bad about yourself - or that you are a failure or have let yourself or your family down: not at all 7. Trouble concentrating on things, such as reading the newspaper or watching television: not at all 8. Moving or speaking so slowly that other people could have noticed. Or the opposite - being so fidgety or restless that you have been moving around a lot more than usual: not at all 9. Thoughts that you would be better off or of hurting yourself in some way: not at all Total score: 0 Depression Screening Interpretation: Negative Depression Screening Done: Yes 42290 - PHQ-9 Billing: Yes Source: Developed by Drs. Bo Esparza, Samira Kincaid, Curtis Mendosa and colleagues, with an educational joaquin from [employer]. Thrive Questionnaire Date Thrive assessed: 11/16/24 I am a: Patient What is your living situation today?: I have a steady place to live Within the past 12 months, did the food you bought not last and you didn't have the money to get more?: I choose not to answer this question Within the past 12 months, did you worry whether your food would run out before you got money to buy more?: I choose not to answer this question Do you have trouble paying for medicines?: No Do you have trouble getting transportation to medical appointments?: No Do you have trouble paying your heating and electricity bill?: I choose not to answer this question Do you have trouble taking care of your child, family member or friend?: I choose not to answer this question Do you have trouble with day-to-day activities such as bathing, preparing meals, shopping, managing finances, etc.?: I choose not to answer this question Are you currently unemployed and looking for a job?: No Are you interested in more education?: I choose not to answer this question Please select the resources that you would like help with: None Currently or been in a relationship where the following occur: No concerns reported THRIVE Score: 0 AUDIT C Alcohol Use Questionnaire (AUDIT-C) 1. How often do you have a drink containing alcohol?: Never 3. How often do you have six or more drinks on one occasion?: Never Total Score: 0 Score Reviewed/Action Taken: Yes SRUTHI-7 AMB Questionnaire SRUTHI-7 Date SRUTHI - 7 assessed: 11/16/24 Feeling nervous, anxious, or on edge: 1 = Several days Not being able to stop or control worryin = Several days Worrying too much about different things: 1 = Several days Trouble relaxin = Several days Being so restless that it is hard to sit still: 1 = Several days Becoming easily annoyed or irritable: 1 = Several days Feeling afraid as if something awful might happen: 1 = Several days Total SRUTHI-7 score (0-4 normal; 5-9 mild; 10-14 moderate; 15-21 severe): 7 Source: Developed by Drs. Bo Esparza, Samira Kincaid, Curtis Mendosa and colleagues, with an educational joaquin from [employer]. Review of Systems Const Denies chills, Denies fatigue, Denies fever(s), Denies headache(s) and Denies malaise Eyes Denies blurry vision, Denies change in vision, Denies irritation and Denies itchy eyes ENT Denies dysphagia, Denies dizziness, Denies otalgia, Denies headache(s), Denies nasal congestion, Denies neck pain, Denies odynophagia, Denies sinus pain and Denies sore throat Card Denies chest pain, Denies rapid heart rate, Denies irregular heart rhythm, Denies palpitations and Denies dyspnea Resp Denies chest congestion, Denies cough, Denies dyspnea and Denies wheezing GI Denies abdominal pain, Denies bloating, Denies constipation, Denies dysphagia, Denies heartburn, Denies diarrhea, Denies nausea, Denies odynophagia and Denies vomiting Denies hematuria, Denies urinary frequency, Denies dysuria, Denies urinary i ncontinence and Denies urinary urgency Musc Denies back pain, Denies arthralgias, Denies joint swelling, Denies muscle weakness and Denies neck pain Skin/Breast Denies breast pain, Denies breast mass, Denies change in pigmentation, Denies lesions, Denies rash and Denies unusual bruising Neuro Denies dizziness, Denies headache(s) and Denies paresthesias Psych Denies anxiety and Denies depression Endo Denies fatigue and Denies palpitations Praveen/Lymph Denies easy bruising Aller/Immun Denies itchy eyes and Denies wheezing Physical exam (Primary Care) Vital Signs: Last Vital Signs Pulse 74 11/16/24 16:20 BP 116/80 11/16/24 16:20 Pulse Ox 97 11/16/24 16:20 Oxygen Delivery Method Room Air 11/16/24 16:20 BMI result Body Mass Index 27.9 Tobacco/Smoking Status: Tobacco use Status Tobacco use date assessed 11/16/24 11/16/24 16:26 Patient Tobacco Use Status Never used Tobacco 11/16/24 16:26 e-Cigarette/Vaping Use Never Used 11/16/24 16:26 PHQ-9: PHQ-9 Score PHQ-9: Total score 0 11/16/24 16:52 Depression Screening Interpretation: Negative Thrive Assessment: Date of Thrive Assessment Date Thrive assessed 11/16/24 11/16/24 16:26 Currently or been in a relationship where the following occur: No concerns reported Const General: no acute distress, alert and awake Orientation/consciousness: patient oriented x3 HENMT Head: Yes normocephalic and Yes atraumatic Ears: external ears normal, TM's normal bilaterally and EAC's normal General nose exam: No nasal discharge present Face and sinus: Yes normal facial exam and Yes sinuses nontender Teeth and gingiva: dentition normal Throat: Yes posterior oropharynx normal and Yes tonsils normal (no TP congestion) Eyes Eyelids: Yes eyelids normal Conjunctivae: conjunctivae normal Pupils: Equal, round and reactive pupils present EOM: EOMs intact bilaterally Neck Neck: Yes supple and No lymphadenopathy Thyroid: Thyroid normal Resp Auscultation: clear to auscultation bilaterally, no rales and no wheezes Cardio Rate: regular rate Rhythm: regular rhythm Heart sounds: no murmurs GI Palpation (GI): Soft to palpation, nontender and No hepatosplenomegaly present Auscultation: normal bowel sounds General: Yes no CVA tenderness Back/Spine/Pelvis Back: no CVA tenderness Thoracic/Lumbar Spine: thoracic and lumbar spine normal to inspection Skin Lesions: no lesions Rashes: no rashes Neuro General: patient oriented x3, moves all extremities, no focal motor deficits and CN's II-XI intact bilaterally Cranial nerves: Yes Equal, round and reactive pupils present Cognition (Neuro): normal cognition Gait exam (Neuro): Normal gait present Extrem General: Yes no clubbing, cyanosis or edema Results Reviewed Results Reviewed: Laboratory Tests 11/06/24 11/06/24 10:57 11:01 WBC 5.6 Hgb 12.0 Hct 38.9 Plt Count 231 Sodium 140 Potassium 4.6 Creatinine 0.80 Estimated GFR > 60 Fasting Glucose 103 H Calcium 8.7 AST 27 ALT 35 H Triglycerides 60 Cholesterol 181 LDL Cholesterol, Calc 116 H HDL Cholesterol 53 25-OH Vitamin D Total 32.0 TSH 0.88 Ur Specific Sontag 1.015 Urine Protein Negative Urine Glucose (UA) Negative Urine Blood Large (3+) H Urine Nitrite Negative Ur Leukocyte Esterase Negative Coding Level of Care Code Est Pt Prev Care 18-39y(75220) Diagnoses Annual physical exam Z00.00 Esophagitis with gastritis K29.70; K20.90 Lesion of right lobe of liver K76.9 Iron deficiency anemia secondary to inadequate dietary iron intake D50.8 Anemia type: iron deficiency Iron deficiency anemia type: inadequate dietary iron intake High serum vitamin B12 R79.89 Vitamin D deficiency E55.9 Obesity (BMI 30-39.9) E66.9 Additional Codes PHQ-9 - 35173 - PHQ-9 Billing: Yes ([id number]) Assessment & Plan Assessment & Plan (1) Annual physical exam: Code(s): Z00.00 - Encounter for general adult medical examination without abnormal findings Category: Medical Plan: Results of her labs done last week reviewed and discussed with patient She is up-to-date with her yearly gynecology exam and pap smear (2) Esophagitis with gastritis: Code(s): K29.70 - Gastritis, unspecified, without bleeding; K20.90 - Esophagitis, unspecified without bleeding Category: Medical Plan: EGD done by Dr. Velázquez in October 2023 revealed only (+) mild esophagitis at the GE junction Biopsies taken at the esophagus and GE junction revealed (+) mild chronic inflammation, with no intestinal metaplasia and dysplasia Gastric Bx revealed (+) changes of minimal chronic inactive gastritis, negative for H pylori, intestinal metaplasia and dysplasia; duodenal Bx came back normal Reinforced dietary restrictions She has tried taking PPI (Omeprazole and Pantoprazole) in the past but she did not find these helpful States that she mostly just avoids eating anything that has bothered her or triggered her symptoms in the past and this has helped her a lot better Have advised that she can try some OTC Probiotics, as mentioned by Dr. Velázquez in his EGD report Continue Simethicone 125 mg TID-QID PRN (3) Lesion of right lobe of liver: Code(s): K76.9 - Liver disease, unspecified Category: Medical Plan: These were seen incidentally on abdominal CT done back in August 2022 - CT revealed the presence of two hepatic lesions that may possibly representing hemangiomas and they recommended further characterization with an MR of the abdomen with and without intravenous contrast. The duodenum was partially underdistended, limiting its assessment and an upper endoscopy should be considered Patient eventually had EGD done in October 2023 - see above She was sent for an MRI of the abdomen to further evaluation the 2 right liver lesions seen on previous CT but patient states that she was never called back to get this scheduled We sent her for an abdominal US at her last visit to reassess her liver regarding these 2 hepatic lesions that were seen incidentally on CT and if they are still present and have progressed from last year, then will try to send her for an MRI again for further evaluation BUT patient also never had them done - states that she was having some issues with her insurance at the time but these are now resolved and she would like to have the US ordered again (4) Anemia: Code(s): D64.9 - Anemia, unspecified Category: Medical Qualifiers: Anemia type: iron deficiency Iron deficiency anemia type: inadequate dietary iron intake Qualified Code(s): D50.8 - Other iron deficiency anemias Plan: Results of her labs done last week reviewed and discussed with patient - her H/H are now normal on her recent labs at 12.0/38.9 She was started previously on oral iron supplements (Ferrous Sulfate 325 mg QD) but she has not taken this in a while now and is currently only taking Multivitamins with minerals States that she has also made it a point to eat foods that are high in iron - she used to be a vegetarian but is now eating regularly again, including meat products (5) High serum vitamin B12: Code(s): R79.89 - Other specified abnormal findings of blood chemistry Category: Medical Plan: Patient had a very high B12 level of 1149 pg/ml when it was first checked in 2021; repeat B12 level last October 2023 was down to 706 pg/ml Patient states that she is just taking some OTC multivitamins daily and is not really taking any B12 supplements Will continue to monitor this regularly (6) Vitamin D deficiency: Code(s): E55.9 - Vitamin D deficiency, unspecified Category: Medical Plan: Corrected - she is now just taking Multivitamins with minerals and is no longer taking any Vitamin D supplements (7) Obesity (BMI 30-39.9): Code(s): E66.9 - Obesity, unspecified Category: Medical Plan: Reinforced diet/exercise as tolerated/lose weight - she has been able to lose about 6 to 7 pounds since her last visit Plan Follow up in 6 months Orders: Orders US abdomen complete 11/16/24 K76.9 - Liver disease, unspecified, R10.9 - Unspecified abdominal pain
== END 2024-11-16 16:55 | disposition home or self-care (01) ==
LOC: HO.HMCH 15:57
PROVIDERS: PCP Internal Medicine; Visit Provider Internal Medicine
DX: Z00.00 Encounter for general adult medical examination without abnormal findings (principal); K29.70 Gastritis, unspecified, without bleeding; E66.9 Obesity, unspecified; Z68.27 Body mass index [BMI] 27.0-27.9, adult; K20.90 Esophagitis, unspecified without bleeding; K76.9 Liver disease, unspecified; D50.8 Other iron deficiency anemias; R79.89 Other specified abnormal findings of blood chemistry; E55.9 Vitamin D deficiency, unspecified

== ENCOUNTER → 2024-11-16 15:56 | Outpatient (BNVA) | payer OTHER, SELFPAY | PROVIDERS: PCP Internal Medicine; Visit Provider Internal Medicine | DX: Z00.00 Encounter for general adult medical examination without abnormal findings (principal); K29.70 Gastritis, unspecified, without bleeding; K20.90 Esophagitis, unspecified without bleeding; K76.9 Liver disease, unspecified; D50.8 Other iron deficiency anemias; R79.89 Other specified abnormal findings of blood chemistry; E55.9 Vitamin D deficiency, unspecified; E66.9 Obesity, unspecified; Z68.27 Body mass index [BMI] 27.0-27.9, adult; Z71.3 Dietary counseling and surveillance | CPT/HCPCS: 96127; 99395 ==

== ENCOUNTER 2024-12-28 08:21 | Outpatient (REF) | payer OTHER, SELFPAY ==
--- NOTE | ~2024-12-28 | US_ITS ---
EXAMINATION: US ABDOMEN HISTORY: R10.9 - Unspecified abdominal pain TECHNIQUE: Real-time grayscale ultrasound imaging of the abdomen was performed and images were reviewed. COMPARISON: Correlation is made with a CT of the abdomen with contrast dated 09/10/2022. FINDINGS: Liver: The right lobe of the liver measures 13.7 cm in size. The left lobe of the liver measures 9.1 cm in size. The liver demonstrates normal homogeneous echotexture. There are 2 echogenic masses in the right lobe measuring 1.8 x 2.1 x 1.5 cm and 1.9 x 2.3 x 2.2 cm. These likely represent hemangiomas, as noted on prior CT. No intrahepatic biliary ductal dilatation is identified. There is normal hepatopedal flow in the portal vein. Gallbladder and biliary tree: The gallbladder is unremarkable, without evidence of calculi, wall thickening, or pericholecystic fluid. There is no sonographic Prescott sign. The common bile duct is normal in caliber measuring 4 mm. Kidneys: The right kidney measures 10.5 cm in length. The left kidney measures 11.1 cm in length. The kidneys are unremarkable, without evidence of masses, hydronephrosis, or calculi. Pancreas: The pancreatic head, neck, and body are unremarkable. The pancreatic tail is obscured by bowel gas. Spleen: The spleen is normal in size and contour, measuring 10.5 cm in length. Abdominal aorta and inferior vena cava: The visualized portions of the abdominal aorta and inferior vena cava are normal in caliber. There is no free fluid in the abdomen. US/US abdomen complete IMPRESSION: Probable hepatic hemangiomas in the right lobe of the liver, as noted on prior CT. This could be confirmed with MRI of the abdomen without and with contrast. Electronically signed by: Bo Camacho MD 12/28/2024 10:16 AM EDT
--- OUTSIDE RECORDS SUMMARY | 2024-12-28 08:39 | XMS_ITS | Clinical Summary ---
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 Refugee health examination 10/30/2013 0 03/01/2019 Overview (10/30/2013): [place] refugee from [place]. TB Screen by [facility]: Pre-departure Antiparasitic Tx: Dental status: Nutritional Status: TB Status: tspot neg 10/25/13 Anemia Screen: 12.8/40.7 Total Eosinophil Count: 88 Lead: Stool O&P: UA heme/protein/gluc: neg Hep B Ag: neg HepB Ab/immunity: neg HIV: neg Varicella Titer: pos Immune to varicella 10/30/2013 03/01/20 19 Overview (10/30/2013): Via serology 10/25/13 Immunizations Immunization Administration Dates Next Due Flu, Cell Culture based, Pre servative Free, 6m+, Flucelvax 08/01/2017 Flu, Preservative Free 05/28/2016 HEP B, PED/ADOL 03/08/2014,11/22/2013,10/25/2013 HPV, QUADRIVALENT 07/12/2014,03/08/2014,01/04/20 14 Hep A, Ped/adol, 2 Dose 02/12/2015,01/03/2014 History Of Varicella 10/25/2013 INFLUENZA, SEASONAL, INJECTABLE 08/01/2017,07/12 INFLUENZA, SEASONAL, INJECTA BLE, PRESERVATIVE FREE 08/21/2015 IPV (IPOL) 02/12/2015, 4,11/22/2013,10/25 MENINGOCOCCAL MCV4P (MENACTRA) 01/03/2014 MMR [...] Health Maintenance Due Date Last Done Comments Anxiety Screening 1997 HPV Screening 1997 Pap + HPV 1997 Tobacco Screening 1997 Relationship Safety Screening/Counseling 2012 Cervical Cancer Screening 2018 Pap Smear 2018 Annual Preventive Care Visit 04/04/202102/2020, 03/02/2019, 02/27/2018, Additional history exists Diabetes Screening 04/07/2021 04/07/2020, 0 04/07/2020, 03/02/2019, Additional history exists Hypertension Screening (#1) 04/04/2023 Elt-DNYUY-29 ( season) 2024 Imm-Influenza (#1) 2024 08/01/2017, [...] EDT) HEPATITIS B SURFACE ANTIBODY POSITIVE(A) NEGATIVE [facility] HEPATITIS B SURFACE ANTIGEN NEGATIVE NEGATIVE [facility] Comment: Over the counter supplements containing high doses of biotin may interfere with this assay. ??If interference is suspected, patients shoud be retested after refraining from biotin supplements for 72 hours. HEPATITIS C VIRUS DIAGNOSTIC NEGATIVE NEGATIVE [facility] HEPATITIS A ANTIBODY TOTAL POSITIVE(A) NEGATIVE [facility] Comment: Over the counter supplements containing high doses of biotin may interfere with this assay. ??If interference is suspected, patients shoud be retested after refraining from biotin supplements for 72 hours. HEPATITIS B CORE ANTIBODY NEGATIVE NEGATIVE [facility] Blood specimen (specimen) Blood / Unknown 04/07/2020 11:11 AM EDT 04/07/2020 4:35 PM EDT Narrative [facility] - 04/07/2020 6:41 PM EDT [facility] [employer], [place] [address] Electric Detector Operator - Page Ag MD PT ID [id number] ORD# [id number] [facility] - BLOOD DRAW [place] [address], * HIV-1 & HIV-2 ANTIBODIES (04/07/2020 11:11 AM EDT) HIV 1 AND 2 ANTIBODY SCREEN NEGATIVE NEGATIVE [facility] Comment: This assay is a 4th [...] AM EDT 04/07/2020 4:35 PM EDT Narrative [facility] - 04/07/2020 7:10 PM EDT [employer], [place] [address] Electric Detector Operator - Page Ag MD PT ID [id number] ORD# [id number] [facility] - BLOOD DRAW Edited Res ult - Final Performing Organization Address City/[facility]/[place] [address], [place] [phone] * HEMOGLOBIN, GLYCOSYLATED (A1C) (04/07/2020 11:11 AM EDT) GLYCATED HEMOGLOBIN A1C 5.5 <6.5 % [facility] ESTIMATED AVERAGE GLUCOSE 111 mg/dL [facility] Blood specimen (specimen) Blood / Unknown 04/07/2020 11:11 AM EDT 04/07/2020 4:35 PM EDT Narrative [facility] - 04/07/2020 7:32 PM EDT [employer], [place] [address] Electric Detector Operator - Page Ag MD PT ID [id number] ORD# [id number] [facility] - BLOOD DRAW Final Resu lt Performing Organization Address City/[facility]/[place] [address], [place] [phone] from Last 3 Months or Most Recently Relevant to Health Maintenance Insurance [facility] Care Teams Public Information Officer Relationship Specialty Start Date End Date Kiara Yao FNP-C [address] [place] [address] PCP - General 02/05/22
== END 2024-12-28 08:22 | disposition home or self-care (01) ==
LOC: HO.US 08:21
PROVIDERS: PCP Internal Medicine; Visit Provider Internal Medicine
DX: R10.9 Unspecified abdominal pain (principal); K76.9 Liver disease, unspecified
CPT/HCPCS: 76700

== ENCOUNTER → 2024-12-28 08:23 | Outpatient (BNV) | payer OTHER, SELFPAY | PROVIDERS: PCP Internal Medicine; Visit Provider Radiology Diagnostic Radiology | DX: R10.9 Unspecified abdominal pain (principal) | CPT/HCPCS: 76700 ==

== ENCOUNTER 2025-01-11 12:18 | Outpatient (AMB) | payer OTHER, SELFPAY ==
--- NOTE | 2025-01-11 12:19 | A.OFFVIS_ITS ---
Vital Signs 01/11/25 12:25 Height 5 ft 8 in Weight 182 lb 15.739 oz BMI 27.8 BP 104/62 Blood Pressure Location Lt brachial Position Sitting Pulse 77 Intake Visit Reasons: med refill /ailyn santino was 2022 Intake Note: Eduard presents in the office as a follow up for cont of medication - states she has seen Ailyn in the past. 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 Last visit with VIRGILIO Ferrell 12/05/2023 for follow-up after EGD. Today she present for medication refills. Shares history of bloating symptoms that onset years ago, with periods of worsened intensity. Symptoms have persisted for several years. States she experienced bloating to the extent that it is noticeable in meetings, causing discomfort throughout the day with occasional burning sensation, but it is not constant. Bloating causes some abdominal discomfort, occasionally more noticeable with walking. Consumption of certain foods such as tomatoes, acidic foods, coffee, dairy (especially raw), and wheat exacerbate symptoms. Previous treatments include allergy testing and an upper endoscopy. Allergy testing did not show any issues. Upper endoscopy revealed inflammation which prompted her dietary changes leading to some weight loss and symptom improvement. She also gets marked relief with simethicone using approx three times per week. The patient tries to avoid known trigger foods but does not completely restrict them. There are no associated symptoms of nausea, vomiting, or substantial heartburn. Rare episodes of regurgitation occur. Patient denies: fever/chills, n/v, appetite changes, pyrosis, regurgitation,dysphasia, unintentional wt loss or melena/hematochezia. Social History: - Diet: Avoids dairy and wheat as much as possible, limits acidic foods, and adheres to a diet that prevents bloating. - Alcohol/Tobacco/Drug Use: No current alcohol, tobacco, or recreational drug use. Drank occasionally in the past, not within the last 9-10 months. - Occupation: Recently completed [employer] school ( 12/2024) and is seeking employment. - family hx as below -denies personal hx of [place] [facility] Medical History Obesity Vitamin D deficiency Obesity (BMI 30-39.9) Surgical History History of esophagogastroduodenoscopy (EGD) S/P LASIK surgery Family History Mother Arthritis Diabetes High cholesterol High blood pressure Heart problem Father High blood pressure Diabetes High cholesterol Arthritis Other Mental health problem Social History Housing: House Alcohol intake: never Patient Tobacco Use Status: Never used Tobacco e-Cigarette/Vaping Use: Never Used Second Hand Smoke Exposure: Yes service: No Current occupational status: employed Cognitive needs: No Hearing needs: No Vision needs: No Female Reproductive History Menstrual Age of Menarche: 17 Review of Systems Const Reports as per HPI ENT Reports as per HPI Card Reports as per HPI Resp Reports as per HPI GI Reports as per HPI Reports as per HPI Physical Exam Vital Signs: Last Vital Signs Pulse 77 01/11/25 12:25 BP 104/62 01/11/25 12:25 BMI result Body Mass Index 27.8 Const General: healthy appearing, no acute distress and well developed Nutritional Appearance: well nourished Orientation/consciousness: patient oriented x3 HEENT Head: Yes normal to inspection, Yes normocephalic and Yes atraumatic Face and sinus: Yes normal facial exam Eyes General: appearance normal, both eyes and all related structures Neck Neck: Yes normal visual inspection Resp Effort & Inspection: normal respiratory effort, able to speak in complete sentences, no tracheal deviation and symmetric chest movement Auscultation: clear to auscultation bilaterally Cardio Jugular venous distension: no JVD Rate: regular rate Rhythm: regular rhythm Heart sounds: S1 normal heart sound present, S2 normal heart sound present, no gallops and no murmurs GI Inspection: Yes normal to inspection and No distended Palpation (GI): Soft to palpation, not firm, nontender and No hepatosplenomegaly present Auscultation: normal bowel sounds Neuro General: patient oriented x3 Gait exam (Neuro): Normal gait present Psych Appearance: grossly normal Mental Status: mental status grossly normal Speech and movement: Normal speech and movement present Affect: normal affect Attitude: cooperative Thought process: Normal thought process present Thought content: Normal thought content present Insight: Good insight present (Psych) Judgement: Good judgement present (Psych) Results Reviewed Results Reviewed: Laboratory Tests 09/28/22 10:52 H. pylori Breath Test Negative Date of Service: 11/17/23 Narrative: Procedure Description: EGD Indication: bloating Anesthesia: MAC FLEXIBLE TRANSORAL UPPER GASTROINTESTINAL ENDOSCOPY UPPER ENDOSCOPY Procedure: The patient was placed in the left lateral decubitis position and pre-procedure medications were administered and a bite block was placed. The endoscope was inserted into the mouth and advanced under direct vision to the third part of duodenum. A careful inspection was made as the upper endoscope was withdrawn including a retroflexed examination of the proximal stomach; Findings and interventions are described below. Findings: Larynx:normal Esophagus: GE junction at 38 cm, diaphragm hiatus at 38 cm, mild esophagitis at GEJ, bx taken as well as from distal esophagus Stomach: normal mucosa and good peristalsis . Biopsies were obtained. Grade 2 flap valve on retroflexed examination of the cardia. Duodenum: Normal bulb and descending duodenum, bx taken incl disaccharidases Intervention: Biopsies as noted above, Impression/Findings: esophagitis Pathology: Received: 11/17/23 THIS IS A CORRECTED REPORT This is a corrected report. Any previous versions are stored internally and are available if necessary. Diagnosis A. Duodenum, biopsy: Duodenal mucosa with preserved villi and no specific change. B. Stomach, biopsy: Gastric body mucosa with minimal chronic inactive gastritis; negative for H pylori, intestinal metaplasia and dysplasia. C. Esophagogastric junction, biopsy: Squamocolumnar mucosa with mild chronic inf lammation; negative for intestinal metaplasia and dysplasia. D. Esophagus, distal, biopsy: Squamous mucosa with no specific change; no columnar mucosa present. Note: Report corrected to correct typographical error in part B diagnosis; diagnoses are unchanged. Clinical History Pre-Op Dx: Abdominal bloating Post-Op Dx: Mild gastritis Assessment & Plan Assessment & Plan (1) Abdominal bloating: Code(s): R14.0 - Abdominal distension (gaseous) Category: Medical Plan: Reviewed EGD results from October 2023 with findings of mild gastritis. We discussed the need to explore alternative pharmacological management. However, Eduard finds simethicone and lifestyle modifications effective for symptom management. Shared decision-making to continue simethicone and further management can be continued with PCP. Medications: Continue current regimen including simethicone as needed. 90-day supply with three refills Rx'd. Education on prevention : -Advised against heavy meals; encouraged small, frequent meals instead of large ones. - Instructed to remain upright for 2?3 hours after eating. - Advised to avoid late-night meals, spicy foods, caffeine, alcohol, known dietary triggers, and tight-fitting clothing. - Emphasis placed on gradual implementation of lifestyle changes to improve adherence and symptom control. Plan Follow-up as needed Time: I spent a total of 25 minutes on the date of encounter which includes: Preparing to see the patient (reviewed previous documentation, test results and medical history) Performing a medically appropriate exam and/or evaluation Ordering medications, tests, and procedures Documenting clinical information in the health record Medications: Changed From simethicone (Gas Relief (simethicone)) 125 mg PO TID-QID PRN 90 tabs 2RF abdominal distention To simethicone (Gas Relief (simethicone)) take one tablet three to four times daily as needed for bloating 125 mg PO TID-QID PRN 180 tabs 3RF abdominal distention Coding Level of Care Code Established Pt Est Pt Level 3 (87622) Patient Type Established Diagnoses Abdominal bloating R14.0
--- OUTSIDE RECORDS SUMMARY | 2025-01-11 12:21 | XMS_ITS | Clinical Summary ---
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 Refugee health examination 10/30/2013 0 03/01/2019 Overview (10/30/2013): [place] refugee from [place]. TB Screen by IOM: [...] 04/04/2020 11:04 AM EDT Plan of Treatment Not on file Goals Goal Patient Goal Type Associated Problems Recent Progress Patient-Stated? Author Have 3 meals a day Diet On track( 015 3:38 PM PDT) No Suzy Bedolla RD Eat more fruits and vegetables Diet On track( 015 3:38 PM PDT) No Suzy Bedolla RD Increase physical activity Exercise On track( 015 3:38 PM PDT) No Suzy Bedolla RD Insurance [facility] Care Teams Relish Maker Relationship Specialty Start Date End Date Kiara Yao FNP-C [address] [place] [address] PCP - General 02/05/22
[2025-01-11 12:25] VITALS: BP 104/62; PULSE 77; BMI 27.8
== END 2025-01-11 12:48 | disposition home or self-care (01) ==
LOC: HO.HGI 12:19
PROVIDERS: PCP Internal Medicine; Visit Provider Nurse Practitioner Family
DX: R14.0 Abdominal distension (gaseous) (principal)
CPT/HCPCS: 99213

== ENCOUNTER → 2025-01-11 12:18 | Outpatient (BNVA) | payer OTHER, SELFPAY | PROVIDERS: PCP Internal Medicine; Visit Provider Nurse Practitioner Family | DX: R14.0 Abdominal distension (gaseous) (principal) | CPT/HCPCS: 99212 ==

== ENCOUNTER 2025-05-03 15:27 | Outpatient (AMB) | payer OTHER, SELFPAY ==
[2025-05-03 15:33] VITALS: BP 116/80; PULSE 72; O2SAT 99; BMI 28.4
--- NOTE | 2025-05-03 15:33 | MHC.PC.OV ---
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 Accompanied by: Self / Same As Patient Allergies No Known Drug Allergies Allergy (Unknown, Verified 05/03/25 15:49) Unknown Medication List - Last Reconciled 05/03/25 by Jesús Simno MD cholecalciferol (vitamin D3) 25 mcg PO DAILY fluoride (sodium) 1.1% (DentaGel) dental DAILY multivitamin with minerals (Hair,Skin and Nails tablet) 1 tab PO DAILY simethicone (Gas Relief (simethicone)) 125 mg PO TID-QID PRN tretinoin 0.025% appl topical Tobacco use date assessed: 05/03/25 Dental Screening Dental Screen Date: 05/03/25 Did you have a dental visit in the last 12 months?: Yes Did you have a dental problem in the last 6 months where you did not have access to dental care?: No Was dental information given to patient?: Patient has dentist HPI 6 Month F/U HPI Details Patient comes in today for her follow up visit States that she feels okay She denies any headaches or dizziness Denies any chest pains, no shortness of breath No nausea/vomiting, no abdominal pain No change in bowel habits noted She would like to know how her abdominal ultrasound done a few months ago came out [facility] Medical History (Updated 05/05/25 @ 02:14 by Jesús Simon MD) Overweight (BMI 25.0-29.9) Obesity Vitamin D deficiency Obesity (BMI 30-39.9) Surgical History History of esophagogastroduodenoscopy (EGD) S/P LASIK surgery Family History Mother Arthritis Diabetes High cholesterol High blood pressure Heart problem Father High blood pressure Diabetes High cholesterol Arthritis Other Mental health problem Social History Housing: House Alcohol intake: never Patient Tobacco Use Status: Never used Tobacco e-Cigarette/Vaping Use: Never Used Second Hand Smoke Exposure: Yes service: No Current occupational status: employed Current occupational exposures/hazards: No Cognitive needs: No Hearing needs: No Vision needs: No Female Reproductive History Menstrual Age of Menarche: 17 Questionnaire PHQ-9 Over the last 2 weeks, how often have you been bothered by any of the following problems? 1. Little interest or pleasure in doing things: several days 2. Feeling down, depressed, or hopeless: not at all 3. Trouble falling or staying asleep, or sleeping too much: not at all 4. Feeling tired or having little energy: not at all 5. Poor appetite or overeating: several days 6. Feeling bad about yourself - or that you are a failure or have let yourself or your family down: not at all 7. Trouble concentrating on things, such as reading the newspaper or watching television: several days 8. Moving or speaking so slowly that other people could have noticed. Or the opposite - being so fidgety or restless that you have been moving around a lot more than usual: not at all 9. Thoughts that you would be better off or of hurting yourself in some way: not at all Total score: 3 Depression Screening Interpretation: Positive Depression Screening Follow-up: Follow-up Visit Requested Depression Screening Done: Yes 22169 - PHQ-9 Billing: Yes Source: Developed by Drs. Bo Esparza, Samira Kincaid, Curtis Mendosa and colleagues, with an educational joaquin from [employer]. Thrive Questionnaire Date Thrive assessed: 05/03/25 I am a: Patient What is your living situation today?: I have a steady place to live Within the past 12 months, did the food you bought not last and you didn't have the money to get more?: I choose not to answer this question Within the past 12 months, did you worry whether your food would run out before you got money to buy more?: I choose not to answer this question Do you have trouble paying for medicines?: No Do you have trouble getting transportation to medical appointments?: No Do you have trouble paying your heating and electricity bill?: I choose not to answer this question Do you have trouble taking care of your child, family member or friend?: I choose not to answer this question Do you have trouble with day-to-day activities such as bathing, preparing meals, shopping, managing finances, etc.?: I choose not to answer this question Are you currently unemployed and looking for a job?: No Are you interested in more education?: I choose not to answer this question Please select the resources that you would like help with: None Currently or been in a relationship where the following occur: No concerns reported THRIVE Score: 0 AUDIT C Alcohol Use Questionnaire (AUDIT-C) 1. How often do you have a drink containing alcohol?: Never 3. How often do you have six or more drinks on one occasion?: Never Total Score: 0 Score Reviewed/Action Taken: Yes SRUTHI-7 AMB Questionnaire SRUTHI-7 Date SRUTHI - 7 assessed: 05/03/25 Feeling nervous, anxious, or on edge: 1 = Several days Not being able to stop or control worryin = Several days Worrying too much about different things: 1 = Several days Trouble relaxin = Several days Being so restless that it is hard to sit still: 1 = Several days Becoming easily annoyed or irritable: 1 = Several days Feeling afraid as if something awful might happen: 1 = Several days Total SRUTHI-7 score (0-4 normal; 5-9 mild; 10-14 moderate; 15-21 severe): 7 Source: Developed by Drs. Bo Esparza, Samira Kincaid, Curtis Mendosa and colleagues, with an educational joaquin from [employer]. Review of Systems Const Denies chills, Denies fatigue, Denies fever(s) and Denies headache(s) ENT Denies dysphagia, Denies dizziness, Denies otalgia, Denies headache(s), Denies neck pain, Denies odynophagia and Denies sore throat Card Denies chest pain, Denies rapid heart rate, Denies irregular heart rhythm, Denies palpitations and Denies dyspnea Resp Denies chest congestion, Denies cough and Denies dyspnea GI Denies abdominal pain, Denies constipation, Denies dysphagia, Denies heartburn, Denies diarrhea, Denies nausea, Denies odynophagia and Denies vomiting Denies urinary frequency, Denies dysuria and Denies urinary urgency Musc Denies back pain, Denies arthralgias and Denies neck pain Skin/Breast Denies rash Neuro Denies dizziness and Denies headache(s) Psych Denies anxiety and Denies depression Endo Denies fatigue and Denies palpitations Praveen/Lymph Denies easy bruising Physical exam (Primary Care) Vital Signs: Last Vital Signs Pulse 72 05/03/25 15:33 BP 116/80 05/03/25 15:33 Pulse Ox 99 05/03/25 15:33 Oxygen Delivery Method Room Air 05/03/25 15:33 BMI result Body Mass Index 28.4 Tobacco/Smoking Status: Tobacco use Status Tobacco use date assessed 05/03/25 05/03/25 15:40 Patient Tobacco Use Status Never used Tobacco 05/03/25 15:40 e-Cigarette/Vaping Use Never Used 05/03/25 15:40 PHQ-9: PHQ-9 Score PHQ-9: Total score 3 05/03/25 15:50 Depression Screening Interpretation: Positive Depression Screening Follow-up: Follow-up Visit Requested Thrive Assessment: Date of Thrive Assessment Date Thrive assessed 05/03/25 05/03/25 15:40 Currently or been in a relationship where the following occur: No concerns reported Const General: no acute distress and alert HENMT Ears: TM's normal bilaterally and EAC's normal Throat: Yes posterior oropharynx normal and Yes tonsils normal (no TP congestion) Neck Neck: Yes supple and No lymphadenopathy Thyroid: Thyroid normal Resp Auscultation: clear to auscultation bilaterally, no rales and no wheezes Cardio Rate: regular rate Rhythm: regular rhythm Heart sounds: no murmurs GI Palpation (GI): Soft to palpation and nontender Auscultation: normal bowel sounds General: Yes no CVA tenderness Back/Spine/Pelvis Back: no CVA tenderness Thoracic/Lumbar Spine: No lumbar spinal tenderness Skin Rashes: no rashes Extrem General: Yes no clubbing, cyanosis or edema Coding Level of Care Code Est Pt Level 4 (66656) Est Pt Prev Care 18-39y(80537) Diagnoses Esophagitis with gastritis K29.70; K20.90 Lesion of right lobe of liver K76.9 Iron deficiency anemia secondary to inadequate dietary iron intake D50.8 Anemia type: iron deficiency Iron deficiency anemia type: inadequate dietary iron intake High serum vitamin B12 R79.89 Vitamin D deficiency E55.9 Overweight (BMI 25.0-29.9) E66.3 Additional Codes PHQ-9 - 11816 - PHQ-9 Billing: Yes ([id number]) Assessment & Plan Assessment & Plan (1) Esophagitis with gastritis: Code(s): K29.70 - Gastritis, unspecified, without bleeding; K20.90 - Esophagitis, unspecified without bleeding Category: Medical Plan: EGD done by Dr. Velázquez in October 2023 revealed only (+) mild esophagitis at the GE junction Biopsies taken at the esophagus and GE junction revealed (+) mild chronic inflammation, with no intestinal metaplasia and dysplasia Gastric Bx revealed (+) changes of minimal chronic inactive gastritis, negative for H pylori, intestinal metaplasia and dysplasia; duodenal Bx came back normal Reinforced dietary restrictions She has tried taking a couple of PPIs (Omeprazole and Pantoprazole) in the past but she did not find these helpful States that she mostly just avoids eating anything that has bothered her or triggered her symptoms in the past and this has helped her a lot better and she is happy to just continue with her current management Continue Simethicone 125 mg TID-QID PRN (2) Lesion of right lobe of liver: Code(s): K76.9 - Liver disease, unspecified Category: Medical Plan: These were seen incidentally on abdominal CT done back in August 2022 - CT revealed the presence of two hepatic lesions that may possibly representing hemangiomas and they recommended further characterization with an MR of the abdomen with and without intravenous contrast. The duodenum was partially underdistended, limiting its assessment and an upper endoscopy should be considered Patient eventually had EGD done in October 2023 - see above She was sent for an MRI of the abdomen to further evaluation the 2 right liver lesions seen on previous CT but patient states that she was never called back to get this scheduled We sent her instead for an abdominal US, which revealed (+) probable hepatic hemangiomas in the right lobe of the liver, as noted on prior CT. This could be confirmed with MRI of the abdomen without and with contrast Have advised patient that we do not really need to send her for an abdominal MRI to confirm these hemangiomas and with their relatively small size, they really do not pose any risk of bleeding Have advised her that we can just continue with ultrasound monitoring once a year for the next few years and if these mold changer time, then we will send her for some additional imaging studies for further evaluation - patient is agreeable to this and prefers not to go for any additional diagnostic imagings at this time (3) Anemia: Code(s): D64.9 - Anemia, unspecified Category: Medical Qualifiers: Anemia type: iron deficiency Iron deficiency anemia type: inadequate dietary iron intake Qualified Code(s): D50.8 - Other iron deficiency anemias Plan: Corrected - her H/H were normal on her labs done back in October 2024 at 12.0/38.9 She was started previously on oral iron supplements (Ferrous Sulfate 325 mg QD) but she has not taken this in a while now and is currently only taking Multivitamins with minerals States that she has also made it a point to eat foods that are high in iron - she used to be a vegetarian but is now eating regularly again, including meat products Will have her recheck her labs in 6 months for follow up (4) High serum vitamin B12: Code(s): R79.89 - Other specified abnormal findings of blood chemistry Category: Medical Plan: Patient had a very high B12 level of 1149 pg/ml when it was first checked in 2021; repeat B12 level last October 2023 was down to 706 pg/ml Patient states that she is just taking some OTC multivitamins daily and is not really taking any B12 supplements Will continue to monitor this regularly (5) Vitamin D deficiency: Code(s): E55.9 - Vitamin D deficiency, unspecified Category: Medical Plan: Corrected - she is now just taking Multivitamins with minerals and is no longer taking any Vitamin D supplements (6) Overweight (BMI 25.0-29.9): Code(s): E66.3 - Overweight Category: Medical Plan: Reinforced diet/exercise as tolerated/lose weight Plan To return in 6 months for her next annual physical examination Orders: Orders Complete Blood Count Auto Diff 6 Months D64.9 - Anemia, unspecified, Z00.00 - Encounter for general adult medical examination without abnormal findings TSH reflex Free T4 6 Months E78.00 - Pure hypercholesterolemia, unspecified, Z00.00 - Encounter for general adult medical examination without abnormal findings Vitamin D 25-OH Total 6 Months E55.9 - Vitamin D deficiency, unspecified, Z00.00 - Encounter for general adult medical examination without abnormal findings Comprehensive [place]. Panel Fast 6 Months E78.00 - Pure hypercholesterolemia, unspecified, Z00.00 - Encounter for general adult medical examination without abnormal findings Lipid Panel 6 Months E78.00 - Pure hypercholesterolemia, unspecified, Z00.00 - Encounter for general adult medical examination without abnormal findings UA CC w/rflx Micro + Cult 6 Months R30.0 - Dysuria, Z00.00 - Encounter for general adult medical examination without abnormal findings
--- OUTSIDE RECORDS SUMMARY | 2025-05-03 15:33 | XMS_ITS | Clinical Summary ---
Author Organization [facility] Address [address] [place] [address] Phone Care Team Providers Care Thermite Welder Name Role Phone Unavailable Primary Care Provider Unavailabl e Social History Tobacco Use Types Packs/Day Years Used Date Smoking Tobacco: Never Assessed Comments Unknown Sex and Gender Information Value Date Recorded Sex Assigned at Not on file Legal Sex Female 9:47 AM EST Gender Identity Not on file Sexual Orientation Not on file Plan of Treatment Upcoming Encounters Date Type Department Care Team ([facility] st Contact Info) Description 05/29/2025 3:00 PM EDT Consult Orthopedic Surgery - [place] [id number] [id number] Patricio Bender DPM [address] [address] Health Maintenance Due Date Last Done Comments DTaP,Tdap,and Td Vaccines (1 - Tdap) 2016 Hepatitis B Vaccines (1 of 3 - 19+ 3-dose series) 2016 Cervical Cancer Screening: P ap Smear 2018 Depression Screening 08/29/2024 COVID-19 Vaccine (1 - 2023-2 5 season) 2025 Influenza Vaccine (#1) 2025 HIV Screening 05/03/2025 Hepatitis C Screening 05/03/2025 Social Influencers of Health Screening 05/03/2025 HIB Vaccines Aged Out No longer eligi ble based on patient's age to complete this topic HPV Vaccines Aged Out No longer eligi ble based on patient's age to complete this topic Hepatitis A Vaccines Aged Out No long er eligible based on patient's age to complete this topic IPV Vaccines Aged Out No longer eligi ble based on patient's age to complete this topic MMR Vaccines Aged Out No longer eligi ble based on patient's age to complete this topic Meningococcal ACWY Vaccine Aged Out N o longer eligible based on patient's age to complete this topic Meningococcal B Vaccine Aged Out No l onger eligible based on patient's age to complete this topic Pneumococcal Vaccine: Pediat rics (0 to 5 Years) and At-Risk Patients (6 to 49 Years) Aged Out No longer eligible b ased on patient's age to complete this topic RSV Immunization Patients Un hira 20 months Aged Out No longer eligible b ased on patient's age to complete this topic Varicella Vaccines Aged Out No longer eligible based on patient's age to complete this topic Insurance [facility]
--- OUTSIDE RECORDS SUMMARY | 2025-05-03 15:33 | XMS_ITS | Clinical Summary ---
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 Refugee health examination 10/30/2013 0 03/01/2019 Overview (10/30/2013): [place] refugee from [place]. TB Screen by IOM: [...] Flu, Preservative Free 05/28/2016 HEP B, PED/ADOL ([id number]-PEDS) 03/08/2014,11/22/2013,10/25/2013 HPV, QUADRIVALENT 07/12/2014,03/08/2014,01/04/20 14 Hep A, Ped/adol, 2 Dose 02/12/2015,01/03/2014 History Of Varicella 10/25/2013 INFLUENZA, SEASONAL, INJECTABLE 08/01/2017,07/12 INFLUENZA, SEASONAL, INJECTA BLE, PRESERVATIVE FREE 08/21/2015 IPV (IPOL) 02/12/2015, 4,11/22/2013,10/25 MENINGOCOCCAL MCV4P (MENACTRA) 01/03/2014 MMR (MMR II/Priorix) 11/22/2013,10/25/2013 MMRV, Live (Proquad) 10/25/2013 PNEUMOCOCCAL CONJUGATE PCV 13 02/12/2015 PPD 03/06/2018,01/03/2017 TDAP 10/25/2013 Td (adult), 5 Lf tetanus tox oid ([facility]), preservative free 07/12/2014,11/22/2013 Social History Tobacco Use [...] 83 04/04/2020 11:04 AM EDT Temperature 36.8 C (98.2 F) 04/04/2020 11:04 AM EDT Respiratory Rate 16 04/04/2020 11:04 AM EDT [...] 3 meals a day Diet On track( 3:38 PM PDT) No Suzy Bedolla RD Eat more fruits and vegetables Diet On track( 015 3:38 PM PDT) No Suzy Bedolla RD Increase physical activity Exercise On track( 3:38 PM PDT) No Suzy Bedolla RD Insurance [facility] Care Teams Vascular Manager Relationship Specialty Start Date End Date Kiara Yao FNP-C [address] [place] [id number] PCP - General 02/05/22
== END 2025-05-03 16:05 | disposition home or self-care (01) ==
LOC: HO.HMCH 15:27
PROVIDERS: PCP Internal Medicine; Visit Provider Internal Medicine
DX: Z00.00 Encounter for general adult medical examination without abnormal findings (principal); K29.70 Gastritis, unspecified, without bleeding; K20.90 Esophagitis, unspecified without bleeding; K76.9 Liver disease, unspecified; D50.8 Other iron deficiency anemias; R79.89 Other specified abnormal findings of blood chemistry; E55.9 Vitamin D deficiency, unspecified; E66.3 Overweight

== ENCOUNTER → 2025-05-03 15:27 | Outpatient (BNVA) | payer OTHER, SELFPAY | PROVIDERS: PCP Internal Medicine; Visit Provider Internal Medicine | DX: E66.3 Overweight (principal); K29.70 Gastritis, unspecified, without bleeding; K20.90 Esophagitis, unspecified without bleeding; K76.9 Liver disease, unspecified; D50.8 Other iron deficiency anemias; R79.89 Other specified abnormal findings of blood chemistry; E55.9 Vitamin D deficiency, unspecified; E78.00 Pure hypercholesterolemia, unspecified; D64.9 Anemia, unspecified; R30.0 Dysuria; Z68.28 Body mass index [BMI] 28.0-28.9, adult | CPT/HCPCS: 96127; 99212; 99395 ==